=== PATIENT | male | born 1960 | race Two or more races ===

== ENCOUNTER 2017-06-03 19:15 | Inpatient (IN) | payer OTHER, MEDICAID ==
[~2017-06-03] VITALS: Ht 167.6 cm; Wt 60.0 kg
[~2017-06-03 19:15] MED LIST: ALPR0.5T PO; ARIP1TAB16 PO; ASPI-264 OR; CAR3125T PO; CILO100T PO; CLOP75TA28 PO; FURO20TA3 PO; GABA300C10 OR; HYDR-4683 PO; HYDR25TA35 PO; HYDR2INJ9 PO; HYDR50TA15 PO; INSUINJ37; IPRIH IN; ISOS10TA2 PO; LEVO50TA61 PO; LIS20T PO; LORA-654 PO; MAX35OO OP; METF-372 OR; METO25TA5 PO; NIFE30TA76 PO; NITR0.4S31; OXYC7.5T88; PANT40TA2 PO; PANTOPRAZOLE; SERT-135 PO; SERT-160 PO; SERT-274 PO; SILV1CRE82 TOP; SIMV-13 PO; SUCR1TAB38 OR; TRAZ100T2 PO; [UNRECOGNIZED DRUG - CODE] IV
[2017-06-03] MEDS ORDERED: ASPirin 81 mg TAB PO ONE (20:00)
[2017-06-03 20:57] LABS: Basophils # (auto) 0.2 uL; Basophils % (auto) 2.9 % (0.0-2.0); Eosinophils # (auto) 0.6 uL; Eosinophils % (auto) 9.8 % (0.0-7.0); Hematocrit 32.6 % (41.0-53.0); Hemoglobin 10.4 g/dL (13.5-17.5); Lymphocytes # (auto) 1.7 uL; Lymphocytes % (auto) 28.1 % (10.0-50.0); Mean Corpuscular Hemoglobin 27.5 pg (28.0-32.0); Mean Corpuscular Volume 86.1 fL (80.0-100.0); Monocytes # (auto) 0.7 uL; Monocytes % (auto) 11.8 % (0.0-12.0); Neutrophils # (auto) 2.9 uL; Neutrophils % (auto) 47.4 % (37.0-80.0); Platelet Count (auto) 350 10^3/uL (140-450); Red Blood Cells 3.78 10^6/uL (4.5-5.90); Red Cell Distribution Width 16.7 % (11.8-14.3); White Blood Cell 6.1 10^3/uL (4.4-10.8)
[2017-06-03 21:18] LABS: INR 0.93 (0.9-1.15); Partial Thromboplastin Time 29.6 sec (22.64-33.71); Prothrombin Time 10.1 sec (9.37-12.3)
[2017-06-03 21:19] LABS: Albumin 2.8 g/dL (3.4-5.0); BUN/Creatinine Ratio 12.7; Calcium 8.1 mg/dL (8.5-10.1); Potassium 3.9 mmol/L (3.5-5.1)
[2017-06-03 21:25] LABS: Bilirubin, Total 0.2 mg/dL (0.2-1.0); Total Protein 7.1 g/dL (6.4-8.2)
[2017-06-04] MEDS ORDERED: ONDANSETRON HCL 4 MG/2 ML VIAL IV ONE ×2 (00:15→05:45)
[2017-06-04] MEDS ORDERED: NALBUPHINE HCL 10 MG/1ml INJECTION IV ONE (00:15)
[2017-06-04] MEDS: SODIUM CHLORIDE 0.9% 1,000 ML IV SCH (04:10)
[2017-06-04] MEDS ORDERED: ENOXAPARIN SOD 100 MG/1 ML SYRINGE SC ONE (04:15)
[2017-06-04] MEDS ORDERED: DEXTROSE (50%) 50ML SYRG IV PRN (04:15)
[2017-06-04] MEDS ORDERED: NITROGLYCERIN 0.4 MG SL TAB SL PRN (04:15)
[2017-06-04] MEDS ORDERED: ONDANSETRON HCL 4 MG/2 ML VIAL IV PRN (04:15)
[2017-06-04] MEDS ORDERED: TEMAZEPAM 15 MG CAP PO PRN (04:15)
[2017-06-04] MEDS: HYDROcodone-ACET 5/325MG TAB PO PRN ×3 (05:25→20:39)
[2017-06-04] MEDS ORDERED: ENOXAPARIN SOD 120 MG/0.8 ML SYRINGE SC ONE (05:29)
[2017-06-04] MEDS: FUROSEMIDE 20 MG TAB PO SCH ×2 (05:35→17:46)
[2017-06-04] MEDS: ISOSORBIDE DINITRATE 10 MG TAB PO SCH ×3 (05:35→17:46)
[2017-06-04] MEDS: ACCU-CHEK COMFORT CURVE STRIP VI SCH ×3 (05:43→17:47)
[2017-06-04] MEDS: InsuLIN REG 1unit/0.01ml Soln (100units/ml) SC SCH ×3 (05:43→17:47)
[2017-06-04] MEDS ORDERED: MORPHINE SULFATE 4 MG/ML SYR/VIAL IV ONE (05:45)
[2017-06-04] MEDS: hydrALAZINE HCL 25 MG TAB PO SCH ×3 (06:02→22:00)
[2017-06-04] MEDS ORDERED: LEVOTHYROXINE SODIUM 50 MCG TAB PO SCH (07:00)
[2017-06-04 08:41] VITALS: BP 106/58
[2017-06-04] MEDS: MORPHINE SULFATE 4 MG/ML SYR/VIAL IV PRN ×2 (09:17→13:14)
[2017-06-04] MEDS ORDERED: ENOXAPARIN SOD 40 MG/0.4 ML SYRINGE SC SCH (10:00)
[2017-06-04] MEDS: SERTRALINE HCL 50 MG TAB PO SCH (12:11)
[2017-06-04] MEDS: LISINOPRIL 20 MG TAB PO SCH (12:12)
[2017-06-04] MEDS: ASPirin 81 mg TAB PO SCH (12:17)
[2017-06-04] MEDS: NIFEdipine ER 30 MG TAB PO SCH (12:17)
[2017-06-04] MEDS: CARVEDILOL 3.125 MG TAB PO SCH ×2 (12:18→22:00)
[2017-06-04] MEDS: METOPROLOL SUCCINATE XL 50 MG TAB PO SCH (12:19)
[2017-06-04] MEDS ORDERED: ASPI81TA27 PO (12:32)
[2017-06-04] MEDS ORDERED: ALPR0.5T7 PO (12:32)
[2017-06-04 16:02] LABS: Free T3 2.45 pg/mL (2.3-4.2); Free T4 (Free Thyroxine) 0.96 ng/dL (0.89-1.76)
[2017-06-04 17:00] VITALS: BP 96/58
[2017-06-04 20:00] VITALS: BP 92/54
[2017-06-04] MEDS ORDERED: ATORVASTATIN 20 MG TAB PO SCH (22:00)
[2017-06-04 22:10] VITALS: BP 92/54
[2017-06-05] MEDS: ACCU-CHEK COMFORT CURVE STRIP VI SCH ×3 (00:13→11:29)
[2017-06-05] MEDS: SODIUM CHLORIDE 0.9% 1,000 ML IV SCH (02:24)
[2017-06-05 04:57] VITALS: BP 97/67
[2017-06-05] MEDS: ISOSORBIDE DINITRATE 10 MG TAB PO SCH ×2 (06:00→11:28)
[2017-06-05] MEDS: hydrALAZINE HCL 25 MG TAB PO SCH ×2 (06:00→13:53)
[2017-06-05] MEDS: InsuLIN REG 1unit/0.01ml Soln (100units/ml) SC SCH ×3 (06:00→11:28)
[2017-06-05] MEDS: HYDROcodone-ACET 5/325MG TAB PO PRN (06:49)
[2017-06-05] MEDS: FUROSEMIDE 20 MG TAB PO SCH (06:50)
[2017-06-05] MEDS ORDERED: LEVOTHYROXINE SODIUM 25 MCG TAB PO SCH (07:00)
[2017-06-05 07:49] LABS: Basophils # (auto) 0 uL; Basophils % (auto) 0.7 % (0.0-2.0); Eosinophils # (auto) 0.7 uL; Eosinophils % (auto) 9.8 % (0.0-7.0); Hematocrit 26.9 % (41.0-53.0); Hemoglobin 8.5 g/dL (13.5-17.5); Lymphocytes # (auto) 2.5 uL; Lymphocytes % (auto) 36.1 % (10.0-50.0); Mean Corpuscular Hemoglobin 28.4 pg (28.0-32.0); Mean Corpuscular Hgb Conc. 31.6 g/dL (32.0-36.0); Mean Corpuscular Volume 89.7 fL (80.0-100.0); Monocytes # (auto) 0.7 uL; Monocytes % (auto) 10.2 % (0.0-12.0); Neutrophils % (auto) 43.2 % (37.0-80.0); Nucleated Red Blood Cells % 0.1 %; Platelet Count (auto) 276 10^3/uL (140-450); Red Cell Distribution Width 17.1 % (11.8-14.3); White Blood Cell 6.9 10^3/uL (4.4-10.8)
[2017-06-05 07:57] LABS: Albumin 2.1 g/dL (3.4-5.0); Bilirubin, Total 0.2 mg/dL (0.2-1.0); Calcium 7.1 mg/dL (8.5-10.1); Potassium 4.4 mmol/L (3.5-5.1); Total Protein 5.5 g/dL (6.4-8.2)
[2017-06-05] MEDS: MORPHINE SULFATE 4 MG/ML SYR/VIAL IV PRN ×2 (08:11→11:20)
[2017-06-05] MEDS: SERTRALINE HCL 50 MG TAB PO SCH (08:56)
[2017-06-05] MEDS: ASPirin 81 mg TAB PO SCH (08:57)
[2017-06-05] MEDS: CARVEDILOL 3.125 MG TAB PO SCH (08:58)
[2017-06-05] MEDS: METOPROLOL SUCCINATE XL 50 MG TAB PO SCH (08:59)
[2017-06-05 09:00] VITALS: BP 113/62
[2017-06-05] MEDS: NIFEdipine ER 30 MG TAB PO SCH (09:00)
[2017-06-05] MEDS: LISINOPRIL 20 MG TAB PO SCH (09:00)
[2017-06-05] MEDS ORDERED: ENOXAPARIN SOD 40 MG/0.4 ML SYRINGE SC SCH (10:00)
[2017-06-05] MEDS ORDERED: LEVO75TA6 PO (11:04)
[2017-06-05 11:48] VITALS: BP 115/65
[2017-06-05] MEDS ORDERED: NITR0.4S29 SL (11:55)
[2017-06-05 12:47] VITALS: BP 102/58
== END 2017-06-05 14:21 | disposition home or self-care (01) | DRG 280 ==
LOC: EDBD 19:15 → EDUNIT# 19:15 → ER 19:22 → TELE 19:23 → TELE-WESTW 06-04 09:13 → TELE-EAST 06-04 11:42
PROVIDERS: ADMIT Nurse Practitioner; ATTEND Internal Medicine
DX: I21.4 Non-ST elevation (NSTEMI) myocardial infarction (principal); I50.21 Acute systolic (congestive) heart failure; E44.0 Moderate protein-calorie malnutrition; E11.21 Type 2 diabetes mellitus with diabetic nephropathy; E11.40 Type 2 diabetes mellitus with diabetic neuropathy, unspecified; I13.0 Hypertensive heart and chronic kidney disease with heart failure and stage 1 through stage 4 chronic kidney disease, or unspecified chronic kidney disease; N18.3 Chronic kidney disease, stage 3 (moderate); I25.5 Ischemic cardiomyopathy; E11.22 Type 2 diabetes mellitus with diabetic chronic kidney disease; I25.2 Old myocardial infarction; E03.9 Hypothyroidism, unspecified; E78.5 Hyperlipidemia, unspecified; F17.210 Nicotine dependence, cigarettes, uncomplicated; J44.9 Chronic obstructive pulmonary disease, unspecified; F32.9 Major depressive disorder, single episode, unspecified; D64.9 Anemia, unspecified; I25.119 Atherosclerotic heart disease of native coronary artery with unspecified angina pectoris; F41.9 Anxiety disorder, unspecified; Z82.0 Family history of epilepsy and other diseases of the nervous system; Z82.49 Family history of ischemic heart disease and other diseases of the circulatory system; Z83.3 Family history of diabetes mellitus; Z95.1 Presence of aortocoronary bypass graft; Z82.3 Family history of stroke; Z95.5 Presence of coronary angioplasty implant and graft; Z90.49 Acquired absence of other specified parts of digestive tract; Z68.21 Body mass index [BMI] 21.0-21.9, adult
CPT/HCPCS: 36415; 71045; 80053; 82962; 83735; 83880; 84439; 84443; 84481; 84484; 85025; 85610; 85730; 86850; 86900; 86901; 87081; 93005; 94761; 96361; 96372; 96374; 96375; J1815; J2405

== ENCOUNTER 2017-08-06 22:01 | Inpatient (IN) | payer OTHER, MEDICAID ==
[~2017-08-06] VITALS: Ht 167.6 cm; Wt 60.8 kg
[~2017-08-06 22:01] MED LIST changes: -ALPR0.5T PO; +ALPR0.5T7 PO; -ASPI-264 OR; +ASPI81TA27 PO; -HYDR25TA35 PO; -LEVO50TA61 PO; +LEVO75TA6 PO; -MAX35OO OP; -METF-372 OR; -NIFE30TA76 PO; +NITR0.4S29 SL; -OXYC7.5T88; -PANTOPRAZOLE; -SERT-135 PO; -SERT-160 PO; -SILV1CRE82 TOP; -[UNRECOGNIZED DRUG - CODE] IV
[2017-08-06] MEDS ORDERED: NALBUPHINE HCL 10 MG/1ml INJECTION IV ONE ×2 (22:45)
[2017-08-06] MEDS ORDERED: NITROGLYCERIN 0.4 MG SL TAB SL ONE (22:45)
[2017-08-06] MEDS ORDERED: ONDANSETRON HCL 4 MG/2 ML VIAL IV ONE (22:45)
[2017-08-06] MEDS ORDERED: CLOPIDOGREL BISULFATE 75 MG TAB PO ONE ×2 (22:45)
[2017-08-06] MEDS ORDERED: NITROGLYCERIN 0.4MG/HR TOPICAL PATCH TD ONE (22:45)
[2017-08-06 22:56] LABS: Basophils # (auto) 0.1 uL; Basophils % (auto) 0.9 % (0.0-2.0); Eosinophils # (auto) 0.6 uL; Eosinophils % (auto) 8.3 % (0.0-7.0); Hematocrit 36.1 % (41.0-53.0); Hemoglobin 11.8 g/dL (13.5-17.5); Lymphocytes % (auto) 27.2 % (10.0-50.0); Mean Corpuscular Hemoglobin 29.5 pg (28.0-32.0); Mean Corpuscular Hgb Conc. 32.6 g/dL (32.0-36.0); Mean Corpuscular Volume 90.5 fL (80.0-100.0); Monocytes # (auto) 0.7 uL; Neutrophils % (auto) 54.6 % (37.0-80.0); Nucleated Red Blood Cells % 0.1 %; Platelet Count (auto) 242 10^3/uL (140-450); Red Blood Cells 3.99 10^6/uL (4.5-5.90); Red Cell Distribution Width 15.9 % (11.8-14.3); White Blood Cell 7.4 10^3/uL (4.4-10.8)
[2017-08-06 23:08] LABS: INR 0.92 (0.9-1.15); Partial Thromboplastin Time 27.8 sec (22.64-33.71)
[2017-08-06 23:09] LABS: Alanine Aminotransferase 17 U/L (16-61); Albumin 3.1 g/dL (3.4-5.0); Alkaline Phosphatase 188 U/L (45-117); Anion Gap 7 (5-15); Aspartate Aminotransferase 19 U/L (15-37); Bilirubin, Total 0.2 mg/dL (0.2-1.0); Blood Urea Nitrogen 26 mg/dL (7-18); Calcium 8.1 mg/dL (8.5-10.1); Carbon Dioxide 18 mmol/L (21-32); Chloride 116 mmol/L (98-107); GFR African American 41 mL/min; GFR Non-African American 33 mL/min; Glucose 170 mg/dL (74-106); Magnesium 2.4 mg/dL (1.6-2.6); Potassium 3.9 mmol/L (3.5-5.1); Sodium 141 mmol/L (136-145); Total Protein 6.6 g/dL (6.4-8.2)
[2017-08-06] MEDS ORDERED: NITROGLYCERIN 50MG/250ML 250 ML IV ONE ×2 (23:27→23:45)
[2017-08-06] MEDS ORDERED: LORazepam 0.5 MG TAB PO ONE (23:45)
[2017-08-07] MEDS ORDERED: TEMAZEPAM 15 MG CAP PO PRN (01:15)
[2017-08-07] MEDS ORDERED: CARVEDILOL 3.125 MG TAB PO ONE (01:15)
[2017-08-07] MEDS ORDERED: MORPHINE SULFATE 4 MG/ML SYR/VIAL IV PRN ×2 (01:15)
[2017-08-07] MEDS ORDERED: DEXTROSE (50%) 50ML SYRG IV PRN (01:15)
[2017-08-07] MEDS ORDERED: cloNIDine HCL 0.1 MG TAB PO PRN (01:15)
[2017-08-07] MEDS ORDERED: HYDROcodone-ACET 5/325MG TAB PO PRN (01:15)
[2017-08-07] MEDS ORDERED: NITROGLYCERIN 0.4 MG SL TAB SL PRN (01:15)
[2017-08-07] MEDS ORDERED: ACETAMINOPHEN 325 MG TAB PO PRN (01:15)
[2017-08-07] MEDS ORDERED: ONDANSETRON HCL 4 MG/2 ML VIAL IV PRN (01:15)
[2017-08-07] MEDS ORDERED: HYDROcodone-ACET 7.5/325MG TAB PO ONE (02:45)
[2017-08-07] MEDS ORDERED: ENOXAPARIN SOD 60 MG/0.6 ML SYRINGE SC ONE (02:45)
[2017-08-07] MEDS ORDERED: NALBUPHINE HCL 10 MG/1ml INJECTION IV PRN (05:00)
[2017-08-07] MEDS: ISOSORBIDE MONONITRATE 20 MG TAB PO SCH ×3 (06:00→22:34)
[2017-08-07] MEDS: FUROSEMIDE 20 MG TAB PO SCH ×2 (06:00→18:32)
[2017-08-07] MEDS: hydrALAZINE HCL 25 MG TAB PO SCH ×3 (06:00→22:33)
[2017-08-07] MEDS: GABAPENTIN 300 MG CAP PO SCH ×3 (06:00→22:34)
[2017-08-07] MEDS: ACCU-CHEK COMFORT CURVE STRIP VI SCH ×4 (06:30→23:53)
[2017-08-07] MEDS: InsuLIN REG 1unit/0.01ml Soln (100units/ml) SC SCH ×4 (06:30→23:52)
[2017-08-07] MEDS: CARVEDILOL 3.125 MG TAB PO SCH ×2 (09:37→22:33)
[2017-08-07] MEDS: LEVOTHYROXINE SODIUM 25 MCG TAB PO SCH (09:37)
[2017-08-07] MEDS: PANTOPRAZOLE 40 MG TAB PO SCH (09:38)
[2017-08-07] MEDS: CILOSTAZOL 100 MG TAB PO SCH ×2 (09:38→22:34)
[2017-08-07] MEDS: ENOXAPARIN SOD 30 MG/0.3 ML SYRINGE SC SCH (09:38)
[2017-08-07] MEDS: CLOPIDOGREL BISULFATE 75 MG TAB PO SCH (09:38)
[2017-08-07] MEDS: LISINOPRIL 20 MG TAB PO SCH (09:38)
[2017-08-07] MEDS ORDERED: NITROGLYCERIN 0.4 MG SL TAB SL ONE (10:00)
[2017-08-07] MEDS ORDERED: MORPHINE SULFATE 8mg/ml INJ SDV IV PRN (11:45)
[2017-08-07 13:00] VITALS: BP 137/77
[2017-08-07] MEDS: MORPHINE SULFATE 8mg/ml INJ SDV IV PRN ×2 (15:29→20:00)
[2017-08-07 17:00] VITALS: BP 145/69
[2017-08-07] MEDS ORDERED: SERT-274 PO (18:41)
[2017-08-07] MEDS ORDERED: LEVO50TA7 PO (18:41)
[2017-08-07] MEDS ORDERED: SUCR1TAB PO (18:41)
[2017-08-07] MEDS ORDERED: PSEU30TA3 PO (18:41)
[2017-08-07] MEDS ORDERED: HYDR25TA35 PO (18:41)
[2017-08-07] MEDS ORDERED: CEFU500T43 PO (18:41)
[2017-08-07] MEDS ORDERED: BUPR100T14 PO (18:41)
[2017-08-07 20:00] VITALS: BP 125/67
[2017-08-07] MEDS: ATORVASTATIN 20 MG TAB PO SCH (22:34)
[2017-08-07] MEDS: OXYCODONE W/ ACETAMINOPHEN 5/325MG TABLET PO PRN (22:35)
[2017-08-08] VITALS (7 sets, daily range): BP systolic 106–132; BP diastolic 37–73
[2017-08-08] MEDS: MORPHINE SULFATE 8mg/ml INJ SDV IV PRN ×5 (00:06→20:49)
[2017-08-08 05:51] LABS: Basophils # (auto) 0.1 uL; Eosinophils # (auto) 0.7 uL; Hematocrit 37.1 % (41.0-53.0); Hemoglobin 12.4 g/dL (13.5-17.5); Lymphocytes # (auto) 2.1 uL; Lymphocytes % (auto) 30.8 % (10.0-50.0); Mean Corpuscular Hemoglobin 30.2 pg (28.0-32.0); Mean Corpuscular Hgb Conc. 33.6 g/dL (32.0-36.0); Mean Corpuscular Volume 89.9 fL (80.0-100.0); Monocytes # (auto) 0.5 uL; Monocytes % (auto) 7.5 % (0.0-12.0); Neutrophils # (auto) 3.4 uL; Neutrophils % (auto) 49.7 % (37.0-80.0); Nucleated Red Blood Cells % 0.1 %; Platelet Count (auto) 236 10^3/uL (140-450); Red Blood Cells 4.12 10^6/uL (4.5-5.90); Red Cell Distribution Width 15.8 % (11.8-14.3); White Blood Cell 6.7 10^3/uL (4.4-10.8)
[2017-08-08] MEDS: InsuLIN REG 1unit/0.01ml Soln (100units/ml) SC SCH ×3 (06:00→18:00)
[2017-08-08 06:09] LABS: Potassium 4.1 mmol/L (3.5-5.1)
[2017-08-08 06:18] LABS: Albumin 2.9 g/dL (3.4-5.0); BUN/Creatinine Ratio 12.7; Calcium 8.3 mg/dL (8.5-10.1); Magnesium 2.2 mg/dL (1.6-2.6); Total Protein 6.2 g/dL (6.4-8.2)
[2017-08-08 06:19] LABS: Bilirubin, Total 0.4 mg/dL (0.2-1.0)
[2017-08-08] MEDS: ACCU-CHEK COMFORT CURVE STRIP VI SCH ×3 (06:32→18:00)
[2017-08-08] MEDS: hydrALAZINE HCL 25 MG TAB PO SCH ×3 (06:50→22:09)
[2017-08-08] MEDS: ISOSORBIDE MONONITRATE 20 MG TAB PO SCH ×3 (06:50→22:10)
[2017-08-08] MEDS: GABAPENTIN 300 MG CAP PO SCH ×3 (06:52→22:11)
[2017-08-08] MEDS: FUROSEMIDE 20 MG TAB PO SCH (06:52)
[2017-08-08] MEDS: LEVOTHYROXINE SODIUM 25 MCG TAB PO SCH (06:52)
[2017-08-08] MEDS: OXYCODONE W/ ACETAMINOPHEN 5/325MG TABLET PO PRN (08:53)
[2017-08-08] MEDS: CLOPIDOGREL BISULFATE 75 MG TAB PO SCH (10:37)
[2017-08-08] MEDS: CARVEDILOL 3.125 MG TAB PO SCH ×2 (10:37→22:10)
[2017-08-08] MEDS: PANTOPRAZOLE 40 MG TAB PO SCH (10:38)
[2017-08-08] MEDS: LISINOPRIL 20 MG TAB PO SCH (10:38)
[2017-08-08] MEDS: CILOSTAZOL 100 MG TAB PO SCH ×2 (10:38→22:11)
[2017-08-08] MEDS: ENOXAPARIN SOD 30 MG/0.3 ML SYRINGE SC SCH (10:39)
[2017-08-08] MEDS: ALPRAZolam 0.5 MG TAB PO PRN (14:28)
[2017-08-08] MEDS: ATORVASTATIN 20 MG TAB PO SCH (22:10)
[2017-08-09] VITALS (8 sets, daily range): BP systolic 92–131; BP diastolic 49–74
[2017-08-09] MEDS: ACCU-CHEK COMFORT CURVE STRIP VI SCH ×4 (00:10→16:23)
[2017-08-09] MEDS: InsuLIN REG 1unit/0.01ml Soln (100units/ml) SC SCH ×4 (00:10→16:24)
[2017-08-09] MEDS: MORPHINE SULFATE 8mg/ml INJ SDV IV PRN ×5 (01:25→22:10)
[2017-08-09] MEDS: ALPRAZolam 0.5 MG TAB PO PRN (04:05)
[2017-08-09] MEDS: GABAPENTIN 300 MG CAP PO SCH ×3 (05:57→22:02)
[2017-08-09] MEDS: ISOSORBIDE MONONITRATE 20 MG TAB PO SCH ×3 (05:57→22:01)
[2017-08-09] MEDS: hydrALAZINE HCL 25 MG TAB PO SCH ×3 (05:57→22:00)
[2017-08-09] MEDS: LEVOTHYROXINE SODIUM 25 MCG TAB PO SCH (06:42)
[2017-08-09] MEDS: CILOSTAZOL 100 MG TAB PO SCH ×3 (09:48→22:02)
[2017-08-09] MEDS: CARVEDILOL 3.125 MG TAB PO SCH ×2 (09:49→22:01)
[2017-08-09] MEDS: CLOPIDOGREL BISULFATE 75 MG TAB PO SCH (09:50)
[2017-08-09] MEDS: PANTOPRAZOLE 40 MG TAB PO SCH (09:50)
[2017-08-09] MEDS: ENOXAPARIN SOD 30 MG/0.3 ML SYRINGE SC SCH (09:51)
[2017-08-09] MEDS: LISINOPRIL 20 MG TAB PO SCH (09:51)
[2017-08-09 14:04] LABS: Basophils # (auto) 0.1 uL; Basophils % (auto) 1.5 % (0.0-2.0); Eosinophils # (auto) 0.5 uL; Hematocrit 36.6 % (41.0-53.0); Hemoglobin 11.8 g/dL (13.5-17.5); Lymphocytes # (auto) 2.1 uL; Lymphocytes % (auto) 29.9 % (10.0-50.0); Mean Corpuscular Hgb Conc. 32.2 g/dL (32.0-36.0); Mean Corpuscular Volume 90.1 fL (80.0-100.0); Monocytes # (auto) 0.7 uL; Monocytes % (auto) 10.4 % (0.0-12.0); Neutrophils # (auto) 3.6 uL; Neutrophils % (auto) 51.2 % (37.0-80.0); Nucleated Red Blood Cells % 0.1 %; Platelet Count (auto) 226 10^3/uL (140-450); Red Blood Cells 4.06 10^6/uL (4.5-5.90); Red Cell Distribution Width 15.5 % (11.8-14.3); White Blood Cell 7.1 10^3/uL (4.4-10.8)
[2017-08-09 14:35] LABS: BUN/Creatinine Ratio 10.3; Calcium 8.2 mg/dL (8.5-10.1); Magnesium 2.3 mg/dL (1.6-2.6); Potassium 4.5 mmol/L (3.5-5.1)
[2017-08-09] MEDS: SODIUM BICARBONATE 50ML VIAL 100 ML in D5W 5% 1,000 ML IV SCH (16:15)
[2017-08-09] MEDS: ATORVASTATIN 20 MG TAB PO SCH (22:01)
[2017-08-10] VITALS (7 sets, daily range): BP systolic 110–130; BP diastolic 58–91
[2017-08-10] MEDS: ACCU-CHEK COMFORT CURVE STRIP VI SCH ×4 (00:17→16:46)
[2017-08-10] MEDS: SODIUM BICARBONATE 50ML VIAL 100 ML in D5W 5% 1,000 ML IV SCH ×2 (02:33→14:11)
[2017-08-10] MEDS: MORPHINE SULFATE 8mg/ml INJ SDV IV PRN ×4 (03:19→20:15)
[2017-08-10] MEDS: ALPRAZolam 0.5 MG TAB PO PRN ×2 (04:02→17:15)
[2017-08-10] MEDS: InsuLIN REG 1unit/0.01ml Soln (100units/ml) SC SCH ×4 (05:46→16:47)
[2017-08-10] MEDS: ISOSORBIDE MONONITRATE 20 MG TAB PO SCH ×3 (05:58→21:45)
[2017-08-10] MEDS: GABAPENTIN 300 MG CAP PO SCH ×3 (05:58→21:45)
[2017-08-10] MEDS: hydrALAZINE HCL 25 MG TAB PO SCH ×3 (05:58→21:44)
[2017-08-10 06:16] LABS: BUN/Creatinine Ratio 11.4; Calcium 8.3 mg/dL (8.5-10.1); Magnesium 2.3 mg/dL (1.6-2.6); Potassium 4.4 mmol/L (3.5-5.1)
[2017-08-10 06:17] LABS: Basophils # (auto) 0.1 uL; Basophils % (auto) 1.3 % (0.0-2.0); Eosinophils # (auto) 0.5 uL; Eosinophils % (auto) 7.7 % (0.0-7.0); Hematocrit 36.1 % (41.0-53.0); Hemoglobin 12.1 g/dL (13.5-17.5); Lymphocytes # (auto) 1.7 uL; Lymphocytes % (auto) 27.6 % (10.0-50.0); Mean Corpuscular Hgb Conc. 33.4 g/dL (32.0-36.0); Mean Corpuscular Volume 89.7 fL (80.0-100.0); Monocytes # (auto) 0.7 uL; Neutrophils # (auto) 3.2 uL; Neutrophils % (auto) 51.4 % (37.0-80.0); Nucleated Red Blood Cells % 0.1 %; Platelet Count (auto) 209 10^3/uL (140-450); Red Blood Cells 4.02 10^6/uL (4.5-5.90); Red Cell Distribution Width 15.4 % (11.8-14.3); White Blood Cell 6.2 10^3/uL (4.4-10.8)
[2017-08-10] MEDS: LEVOTHYROXINE SODIUM 25 MCG TAB PO SCH (06:50)
[2017-08-10] MEDS: CILOSTAZOL 100 MG TAB PO SCH ×2 (08:32→21:46)
[2017-08-10] MEDS: CARVEDILOL 3.125 MG TAB PO SCH ×2 (08:33→21:44)
[2017-08-10] MEDS: CLOPIDOGREL BISULFATE 75 MG TAB PO SCH (08:33)
[2017-08-10] MEDS: PANTOPRAZOLE 40 MG TAB PO SCH (08:33)
[2017-08-10] MEDS: LISINOPRIL 20 MG TAB PO SCH (09:47)
[2017-08-10] MEDS: ENOXAPARIN SOD 30 MG/0.3 ML SYRINGE SC SCH (11:21)
[2017-08-10 18:41] LABS: Urine Bacteria NONE SEEN /hpf (None Seen); Urine Blood Negative /uL (Negative); Urine Specific Gravity 1.008 (1.001-1.035); Urine WBC <1 /hpf (0 - 3)
[2017-08-10 18:57] LABS: Protein, Urine 90.6 mg/dL (0.0-11.9)
[2017-08-10] MEDS: ATORVASTATIN 20 MG TAB PO SCH (21:45)
[2017-08-11] MEDS: ACCU-CHEK COMFORT CURVE STRIP VI SCH ×2 (00:24→06:39)
[2017-08-11] MEDS: SODIUM BICARBONATE 50ML VIAL 100 ML in D5W 5% 1,000 ML IV SCH (00:24)
[2017-08-11] MEDS: MORPHINE SULFATE 8mg/ml INJ SDV IV PRN ×2 (00:46→04:47)
[2017-08-11 04:45] VITALS: BP 126/60
[2017-08-11] MEDS: InsuLIN REG 1unit/0.01ml Soln (100units/ml) SC SCH ×2 (06:00)
[2017-08-11 06:18] LABS: Basophils # (auto) 0.1 uL; Basophils % (auto) 1.1 % (0.0-2.0); Eosinophils # (auto) 0.4 uL; Eosinophils % (auto) 6.8 % (0.0-7.0); Hematocrit 36.9 % (41.0-53.0); Hemoglobin 12.4 g/dL (13.5-17.5); Lymphocytes # (auto) 1.5 uL; Lymphocytes % (auto) 28.3 % (10.0-50.0); Mean Corpuscular Hemoglobin 29.9 pg (28.0-32.0); Mean Corpuscular Hgb Conc. 33.5 g/dL (32.0-36.0); Mean Corpuscular Volume 89.4 fL (80.0-100.0); Monocytes # (auto) 0.7 uL; Monocytes % (auto) 13.3 % (0.0-12.0); Neutrophils # (auto) 2.7 uL; Neutrophils % (auto) 50.5 % (37.0-80.0); Nucleated Red Blood Cells % 0.1 %; Platelet Count (auto) 209 10^3/uL (140-450); Red Blood Cells 4.13 10^6/uL (4.5-5.90); Red Cell Distribution Width 15.2 % (11.8-14.3); White Blood Cell 5.4 10^3/uL (4.4-10.8)
[2017-08-11] MEDS: GABAPENTIN 300 MG CAP PO SCH (06:25)
[2017-08-11] MEDS: hydrALAZINE HCL 25 MG TAB PO SCH (06:25)
[2017-08-11] MEDS: ISOSORBIDE MONONITRATE 20 MG TAB PO SCH (06:25)
[2017-08-11 06:33] LABS: BUN/Creatinine Ratio 12.3; Calcium 8.7 mg/dL (8.5-10.1); Magnesium 2.5 mg/dL (1.6-2.6); Potassium 3.9 mmol/L (3.5-5.1)
[2017-08-11] MEDS: LEVOTHYROXINE SODIUM 25 MCG TAB PO SCH (06:39)
[2017-08-11 08:28] VITALS: BP 126/72
[2017-08-11 08:52] VITALS: BP 126/72
== END 2017-08-11 09:35 | disposition home or self-care (01) | DRG 291 ==
LOC: EDBD 22:01 → ER 22:03 → TELE 22:04 → TELE-WESTW 08-07 13:10
PROVIDERS: ADMIT Nurse Practitioner; ATTEND Internal Medicine
DX: I13.0 Hypertensive heart and chronic kidney disease with heart failure and stage 1 through stage 4 chronic kidney disease, or unspecified chronic kidney disease (principal); N17.0 Acute kidney failure with tubular necrosis; E87.2 Acidosis; E44.1 Mild protein-calorie malnutrition; N18.4 Chronic kidney disease, stage 4 (severe); R07.89 Other chest pain; I25.10 Atherosclerotic heart disease of native coronary artery without angina pectoris; F32.9 Major depressive disorder, single episode, unspecified; I25.2 Old myocardial infarction; D64.9 Anemia, unspecified; E03.9 Hypothyroidism, unspecified; E11.21 Type 2 diabetes mellitus with diabetic nephropathy; E11.22 Type 2 diabetes mellitus with diabetic chronic kidney disease; E78.5 Hyperlipidemia, unspecified; F17.210 Nicotine dependence, cigarettes, uncomplicated; F41.9 Anxiety disorder, unspecified; I25.5 Ischemic cardiomyopathy; I50.9 Heart failure, unspecified; J44.9 Chronic obstructive pulmonary disease, unspecified; Z79.899 Other long term (current) drug therapy; Z82.0 Family history of epilepsy and other diseases of the nervous system; Z82.3 Family history of stroke; Z82.49 Family history of ischemic heart disease and other diseases of the circulatory system; Z83.3 Family history of diabetes mellitus; Z95.1 Presence of aortocoronary bypass graft; Z95.5 Presence of coronary angioplasty implant and graft
CPT/HCPCS: 36415; 71045; 78582; 80048; 80053; 81001; 82306; 82570; 82962; 83735; 83880; 84100; 84156; 84443; 84484; 85025; 85610; 85730; 93005; 96374; 96375; 99291; J1815; J2270; J2405

== ENCOUNTER 2017-09-22 20:55 | Emergency (ER) | payer MEDICAID, MEDICARE, OTHER ==
[~2017-09-22] VITALS: Ht 167.6 cm; Wt 59.0 kg
[~2017-09-22 20:55] MED LIST changes: +BUPR100T14 PO; +HYDR25TA35 PO; -HYDR50TA15 PO; +LEVO50TA7 PO; +SUCR1TAB PO; -SUCR1TAB38 OR
[2017-09-22 21:56] LABS: Basophils # (auto) 0.1 uL; Basophils % (auto) 1.5 % (0.0-2.0); Eosinophils # (auto) 0.3 uL; Eosinophils % (auto) 5.3 % (0.0-7.0); Hematocrit 42.2 % (41.0-53.0); Hemoglobin 13.9 g/dL (13.5-17.5); Lymphocytes # (auto) 2.6 uL; Lymphocytes % (auto) 44.7 % (10.0-50.0); Mean Corpuscular Hemoglobin 28.4 pg (28.0-32.0); Mean Corpuscular Hgb Conc. 32.9 g/dL (32.0-36.0); Mean Corpuscular Volume 86.3 fL (80.0-100.0); Monocytes # (auto) 0.4 uL; Monocytes % (auto) 7.5 % (0.0-12.0); Neutrophils # (auto) 2.4 uL; Platelet Count (auto) 225 10^3/uL (140-450); Red Blood Cells 4.89 10^6/uL (4.5-5.90); Red Cell Distribution Width 14.7 % (11.8-14.3); White Blood Cell 5.9 10^3/uL (4.4-10.8)
[2017-09-22 22:17] LABS: Alanine Aminotransferase 29 U/L (16-61); Albumin 3.7 g/dL (3.4-5.0); Alkaline Phosphatase 194 U/L (45-117); Anion Gap 10 (5-15); Aspartate Aminotransferase 32 U/L (15-37); BUN/Creatinine Ratio 12.4; Bilirubin, Total 0.1 mg/dL (0.2-1.0); Blood Urea Nitrogen 27 mg/dL (7-18); Calcium 8.5 mg/dL (8.5-10.1); Carbon Dioxide 18 mmol/L (21-32); Chloride 114 mmol/L (98-107); GFR African American 41 mL/min; GFR Non-African American 33 mL/min; Glucose 152 mg/dL (74-106); Magnesium 2.5 mg/dL (1.6-2.6); Potassium 3.8 mmol/L (3.5-5.1); Sodium 142 mmol/L (136-145); Total Protein 7.5 g/dL (6.4-8.2)
[2017-09-22 22:29] LABS: INR 0.91 (0.9-1.15); Partial Thromboplastin Time 29.5 sec (23.78-33.04); Prothrombin Time 9.8 sec (9.27-12.13)
[2017-09-23 01:13] LABS: Urine Bacteria NONE SEEN /hpf (None Seen); Urine Blood 1+ /uL (Negative); Urine Budding Yeast OCCASIONAL /hpf (None Seen); Urine Hyaline Cast FEW /lpf (0 - 2); Urine Mucus FEW (None Seen); Urine Specific Gravity 1.029 (1.001-1.035); Urine WBC 1 /hpf (0 - 3)
[2017-09-23] MEDS ORDERED: LORazepam 2MG/ML-1ML VIAL IV ONE (01:15)
[2017-09-23 01:28] LABS: Amphetamine Screen, Urine NEGATIVE (NEGATIVE); Barbiturate Scree,Urine NEGATIVE (NEGATIVE); Benzodiazephine Screen, Urine NEGATIVE (NEGATIVE); Cannabinoid Screen, Urine NEGATIVE (NEGATIVE); Cocaine Screen, Urine NEGATIVE (NEGATIVE); Opiate Scree,Urine NEGATIVE (NEGATIVE); Phencyclidine Screen, Urine NEGATIVE (NEGATIVE)
[2017-09-23] MEDS ORDERED: LORazepam 2MG/ML-1ML VIAL IM ONE (01:30)
[2017-09-23 03:58] VITALS: BP 118/78
== END 2017-09-23 04:02 | disposition home or self-care (01) ==
LOC: EDBD 20:55 → ER 20:55
DX: F41.9 Anxiety disorder, unspecified (principal); I13.0 Hypertensive heart and chronic kidney disease with heart failure and stage 1 through stage 4 chronic kidney disease, or unspecified chronic kidney disease; E11.22 Type 2 diabetes mellitus with diabetic chronic kidney disease; N18.9 Chronic kidney disease, unspecified; I50.9 Heart failure, unspecified; I25.810 Atherosclerosis of coronary artery bypass graft(s) without angina pectoris; F17.210 Nicotine dependence, cigarettes, uncomplicated; J44.9 Chronic obstructive pulmonary disease, unspecified; E78.5 Hyperlipidemia, unspecified; I25.2 Old myocardial infarction; Z95.1 Presence of aortocoronary bypass graft; Z90.49 Acquired absence of other specified parts of digestive tract
CPT/HCPCS: 36415; 71045; 80053; 80307; 81001; 83735; 83880; 84484; 85025; 85610; 85730; 93005; 96372; 99285; J2060

== ENCOUNTER 2017-10-09 13:57 | Inpatient (IN) | payer OTHER, MEDICAID ==
[~2017-10-09] VITALS: Ht 167.6 cm; Wt 59.3 kg
[2017-10-09 15:06] LABS: Basophils # (auto) 0.2 uL; Basophils % (auto) 2.3 % (0.0-2.0); Eosinophils # (auto) 0.2 uL; Hematocrit 41.2 % (41.0-53.0); Hemoglobin 13.5 g/dL (13.5-17.5); Lymphocytes % (auto) 29.5 % (10.0-50.0); Mean Corpuscular Hemoglobin 28.5 pg (28.0-32.0); Mean Corpuscular Hgb Conc. 32.7 g/dL (32.0-36.0); Mean Corpuscular Volume 87.2 fL (80.0-100.0); Monocytes # (auto) 0.5 uL; Monocytes % (auto) 7.9 % (0.0-12.0); Neutrophils # (auto) 3.8 uL; Neutrophils % (auto) 57.3 % (37.0-80.0); Nucleated Red Blood Cells % 0.1 %; Platelet Count (auto) 220 10^3/uL (140-450); Red Blood Cells 4.73 10^6/uL (4.5-5.90); Red Cell Distribution Width 15.1 % (11.8-14.3); White Blood Cell 6.7 10^3/uL (4.4-10.8)
[2017-10-09 15:28] LABS: Alanine Aminotransferase 27 U/L (16-61); Albumin 3.4 g/dL (3.4-5.0); Alkaline Phosphatase 164 U/L (45-117); Anion Gap 7 (5-15); Aspartate Aminotransferase 24 U/L (15-37); Bilirubin, Total 0.5 mg/dL (0.2-1.0); Blood Urea Nitrogen 26 mg/dL (7-18); Calcium 8.1 mg/dL (8.5-10.1); Carbon Dioxide 21 mmol/L (21-32); Chloride 113 mmol/L (98-107); GFR African American 45 mL/min; GFR Non-African American 37 mL/min; Glucose 179 mg/dL (74-106); Potassium 3.7 mmol/L (3.5-5.1); Sodium 141 mmol/L (136-145); Total Protein 6.8 g/dL (6.4-8.2)
[2017-10-09] MEDS ORDERED: ASPirin 81 mg TAB PO ONE (17:45)
[2017-10-09] MEDS ORDERED: HYDROcodone-ACET 5/325MG TAB PO PRN (18:45)
[2017-10-09] MEDS ORDERED: NITROGLYCERIN 0.4 MG SL TAB SL PRN (18:45)
[2017-10-09] MEDS ORDERED: MORPHINE SULFATE 8mg/ml INJ SDV IV PRN (18:45)
[2017-10-09] MEDS ORDERED: HYDROmorphone HCL 2 MG TAB PO PRN (18:45)
[2017-10-09] MEDS ORDERED: TEMAZEPAM 15 MG CAP PO PRN (18:45)
[2017-10-09] MEDS ORDERED: DEXTROSE (50%) 50ML SYRG IV PRN (18:45)
[2017-10-09] MEDS ORDERED: ACETAMINOPHEN 500 MG TAB PO PRN (18:45)
[2017-10-09 19:08] LABS: INR 0.95 (0.9-1.15); Partial Thromboplastin Time 28.7 sec (23.78-33.04); Prothrombin Time 10.2 sec (9.27-12.13)
[2017-10-09] MEDS: MORPHINE SULF(PF) 0.5MG/ML 10ML VIAL IV PRN (19:48)
[2017-10-09] MEDS: PROMETHAZINE HCL 25 MG/ML 1ML IV PRN (19:49)
[2017-10-09] MEDS: LORazepam 0.5 MG TAB PO PRN (20:21)
[2017-10-09] MEDS: ARIPIPRAZOLE 2 MG PO SCH (22:00)
[2017-10-09] MEDS: PANTOPRAZOLE 40 MG TAB PO SCH (22:07)
[2017-10-09] MEDS: hydrALAZINE HCL 25 MG TAB PO SCH (22:07)
[2017-10-09] MEDS: SODIUM CHLOR 0.9% PF (SALINE LOCK) 10ML VIAL/SYR IV SCH (22:07)
[2017-10-09] MEDS: CARVEDILOL 3.125 MG TAB PO SCH (22:11)
[2017-10-09] MEDS: SUCRALFATE 1 GM TAB PO SCH (22:11)
[2017-10-09] MEDS: ISOSORBIDE DINITRATE 10 MG TAB PO SCH (22:12)
[2017-10-09] MEDS: ATORVASTATIN 20 MG TAB PO SCH (22:13)
[2017-10-09] MEDS: buPROPion HCL 100 MG TAB PO SCH (22:14)
[2017-10-09] MEDS: InsuLIN REG 1unit/0.01ml Soln (100units/ml) SC SCH (22:22)
[2017-10-09] MEDS: ACCU-CHEK COMFORT CURVE STRIP VI SCH (22:23)
[2017-10-09] MEDS: GABAPENTIN 300 MG CAP PO SCH (22:24)
[2017-10-09] MEDS: traZODone HCL 50 MG TAB PO SCH (22:51)
[2017-10-09] MEDS: CILOSTAZOL 100 MG TAB PO SCH (22:56)
[2017-10-10 00:30] VITALS: BP 125/74
[2017-10-10 05:00] VITALS: BP 105/67
[2017-10-10] MEDS: SODIUM CHLOR 0.9% PF (SALINE LOCK) 10ML VIAL/SYR IV SCH ×3 (05:51→22:26)
[2017-10-10] MEDS: SUCRALFATE 1 GM TAB PO SCH ×3 (05:51→22:25)
[2017-10-10] MEDS: GABAPENTIN 300 MG CAP PO SCH ×3 (05:53→22:26)
[2017-10-10] MEDS: ISOSORBIDE DINITRATE 10 MG TAB PO SCH ×3 (05:53→22:00)
[2017-10-10] MEDS: hydrALAZINE HCL 25 MG TAB PO SCH ×3 (05:54→22:00)
[2017-10-10] MEDS: ACCU-CHEK COMFORT CURVE STRIP VI SCH ×4 (06:00→22:00)
[2017-10-10] MEDS: InsuLIN REG 1unit/0.01ml Soln (100units/ml) SC SCH ×4 (06:00→22:00)
[2017-10-10] MEDS ORDERED: MORPHINE SULF INJ 2 MG/ML SYRINGE 1ML ONE ×2 (06:10→10:32)
[2017-10-10] MEDS ORDERED: LEVOTHYROXINE SODIUM 25 MCG TAB PO SCH (07:00)
[2017-10-10] MEDS ORDERED: LEVOTHYROXINE SODIUM 50 MCG TAB PO SCH (07:00)
[2017-10-10 08:05] VITALS: BP 101/57
[2017-10-10 08:14] LABS: Albumin 2.8 g/dL (3.4-5.0); BUN/Creatinine Ratio 13.4; Bilirubin, Total 0.5 mg/dL (0.2-1.0); Potassium 3.4 mmol/L (3.5-5.1); Total Protein 5.5 g/dL (6.4-8.2)
[2017-10-10] MEDS: LISINOPRIL 20 MG TAB PO SCH (10:00)
[2017-10-10] MEDS ORDERED: CLOPIDOGREL BISULFATE 75 MG TAB PO SCH (10:00)
[2017-10-10] MEDS: ENOXAPARIN SOD 40 MG/0.4 ML SYRINGE SC SCH ×2 (10:00→11:02)
[2017-10-10] MEDS: CARVEDILOL 3.125 MG TAB PO SCH ×2 (10:00→22:00)
[2017-10-10] MEDS: SERTRALINE HCL 50 MG TAB PO SCH (11:01)
[2017-10-10] MEDS: buPROPion HCL 100 MG TAB PO SCH ×2 (11:02→22:26)
[2017-10-10] MEDS: NITROGLYCERIN 0.2MG/HR TOPICAL PATCH TD SCH (11:02)
[2017-10-10] MEDS: PANTOPRAZOLE 40 MG TAB PO SCH (11:03)
[2017-10-10] MEDS: ASPirin-EC 81 mg tab PO SCH (11:03)
[2017-10-10] MEDS: HYDROmorphone HCL 2 MG TAB PO PRN ×2 (11:03→17:17)
[2017-10-10] MEDS: CILOSTAZOL 100 MG TAB PO SCH ×2 (11:03→22:26)
[2017-10-10] MEDS: FUROSEMIDE 20 MG TAB PO SCH (11:04)
[2017-10-10] MEDS ORDERED: IODIXANOL 320MG/ML 100ML BTL IV ONE ×3 (11:40→13:25)
[2017-10-10] MEDS ORDERED: LIDOCAINE 2%HCL (LOCAL ANESTH.) INJ 20ML MDV ONE (11:40)
[2017-10-10 11:48] VITALS: BP 118/61
[2017-10-10] MEDS ORDERED: ANGIOMAX 250 MG VIAL IV ONE (12:23)
[2017-10-10] MEDS ORDERED: MIDAZOLAM HCL 1MG/1ML-2 ML VIAL ONE ×2 (12:23→13:27)
[2017-10-10] MEDS ORDERED: fentaNYL CITRATE 100 MCG/2 ML VL ONE ×2 (12:23→13:27)
[2017-10-10] MEDS ORDERED: EPTIFIBATIDE INJ (2MG/ML) 10ML VIAL IV ONE (12:24)
[2017-10-10] MEDS ORDERED: SODIUM CHL 0.9% 50 ML ONE (12:24)
[2017-10-10] MEDS ORDERED: LIDOCAINE HCL 100 MG/5ML (2%) SYRG INJ IV ONE (13:25)
[2017-10-10] MEDS ORDERED: PRASUGREL HCL 10 MG TAB ONE (13:38)
[2017-10-10] MEDS ORDERED: SODIUM BICARBONATE 8.4% INJ 50ML SYRINGE ONE (14:03)
[2017-10-10 16:15] VITALS: BP 95/54
[2017-10-10] MEDS: traZODone HCL 50 MG TAB PO SCH (17:17)
[2017-10-10] MEDS: LORazepam 0.5 MG TAB PO PRN (17:23)
[2017-10-10 20:48] LABS: Alcohol, Urine < 3.0 mg/dL (0-5); Amphetamine Screen, Urine NEGATIVE (NEGATIVE); Barbiturate Scree,Urine NEGATIVE (NEGATIVE); Benzodiazephine Screen, Urine POSITIVE (NEGATIVE); Cannabinoid Screen, Urine NEGATIVE (NEGATIVE); Cocaine Screen, Urine NEGATIVE (NEGATIVE); Opiate Scree,Urine NEGATIVE (NEGATIVE); Phencyclidine Screen, Urine NEGATIVE (NEGATIVE)
[2017-10-10] MEDS: ALPRAZolam 0.5 MG TAB PO PRN (21:20)
[2017-10-10] MEDS: MORPHINE SULF(PF) 0.5MG/ML 10ML VIAL IV PRN (21:40)
[2017-10-10 22:00] VITALS: BP 113/78
[2017-10-10] MEDS: ARIPIPRAZOLE 2 MG PO SCH (22:00)
[2017-10-10] MEDS: ATORVASTATIN 20 MG TAB PO SCH (22:26)
[2017-10-11] MEDS ORDERED: MORPHINE SULFATE 8mg/ml INJ SDV IM ONE (01:30)
[2017-10-11] MEDS ORDERED: ONDANSETRON HCL 4 MG/2 ML VIAL IM ONE (01:30)
[2017-10-11] MEDS: MORPHINE SULF(PF) 0.5MG/ML 10ML VIAL IV PRN ×4 (01:57→21:47)
[2017-10-11 05:00] VITALS: BP 119/74
[2017-10-11] MEDS: SODIUM CHLOR 0.9% PF (SALINE LOCK) 10ML VIAL/SYR IV SCH ×3 (06:25→21:50)
[2017-10-11] MEDS: ISOSORBIDE DINITRATE 10 MG TAB PO SCH ×3 (06:26→21:41)
[2017-10-11] MEDS: SUCRALFATE 1 GM TAB PO SCH ×3 (06:26→21:45)
[2017-10-11] MEDS: hydrALAZINE HCL 25 MG TAB PO SCH ×3 (06:26→21:46)
[2017-10-11] MEDS: GABAPENTIN 300 MG CAP PO SCH ×3 (06:27→21:42)
[2017-10-11] MEDS: InsuLIN REG 1unit/0.01ml Soln (100units/ml) SC SCH ×4 (06:46→21:50)
[2017-10-11] MEDS: ACCU-CHEK COMFORT CURVE STRIP VI SCH ×4 (06:46→21:50)
[2017-10-11 08:00] VITALS: BP_SYST 101; BP_SYST 119; BP_DIAS 60; BP_DIAS 74
[2017-10-11] MEDS: ASPirin-EC 81 mg tab PO SCH (09:36)
[2017-10-11] MEDS: buPROPion HCL 100 MG TAB PO SCH ×2 (09:36→21:42)
[2017-10-11] MEDS: NITROGLYCERIN 0.2MG/HR TOPICAL PATCH TD SCH (09:36)
[2017-10-11] MEDS: SERTRALINE HCL 50 MG TAB PO SCH (09:37)
[2017-10-11] MEDS: LISINOPRIL 20 MG TAB PO SCH (09:37)
[2017-10-11] MEDS: PANTOPRAZOLE 40 MG TAB PO SCH (09:37)
[2017-10-11] MEDS: CARVEDILOL 3.125 MG TAB PO SCH ×2 (09:37→21:45)
[2017-10-11] MEDS: FUROSEMIDE 20 MG TAB PO SCH (09:39)
[2017-10-11] MEDS: PRASUGREL HCL 10 MG TAB PO SCH (09:43)
[2017-10-11] MEDS: CILOSTAZOL 100 MG TAB PO SCH ×2 (09:43→21:44)
[2017-10-11] MEDS ORDERED: PRASUGREL HCL 10 MG TAB PO SCH (10:00)
[2017-10-11 12:00] VITALS: BP 116/71
[2017-10-11 15:00] VITALS: BP 114/74
[2017-10-11] MEDS: HYDROmorphone HCL 2 MG TAB PO PRN (15:45)
[2017-10-11] MEDS: traZODone HCL 50 MG TAB PO SCH (17:28)
[2017-10-11 20:00] VITALS: BP 119/74
[2017-10-11] MEDS: ATORVASTATIN 20 MG TAB PO SCH (21:43)
[2017-10-11] MEDS: ALPRAZolam 0.5 MG TAB PO PRN (21:47)
[2017-10-11] MEDS: ARIPIPRAZOLE 2 MG PO SCH (21:49)
[2017-10-11 22:25] VITALS: BP 114/67
[2017-10-12] MEDS: hydrALAZINE HCL 25 MG TAB PO SCH ×3 (04:57→21:41)
[2017-10-12] MEDS: ISOSORBIDE DINITRATE 10 MG TAB PO SCH ×3 (04:58→21:45)
[2017-10-12] MEDS: SODIUM CHLOR 0.9% PF (SALINE LOCK) 10ML VIAL/SYR IV SCH ×3 (04:58→22:01)
[2017-10-12 05:16] VITALS: BP 102/44
[2017-10-12] MEDS: SUCRALFATE 1 GM TAB PO SCH ×3 (05:16→21:59)
[2017-10-12] MEDS: GABAPENTIN 300 MG CAP PO SCH ×3 (05:16→22:00)
[2017-10-12] MEDS: InsuLIN REG 1unit/0.01ml Soln (100units/ml) SC SCH ×4 (05:23→22:00)
[2017-10-12] MEDS: ACCU-CHEK COMFORT CURVE STRIP VI SCH ×4 (05:23→22:02)
[2017-10-12 08:00] VITALS: BP 81/37
[2017-10-12] MEDS: NITROGLYCERIN 0.2MG/HR TOPICAL PATCH TD SCH (10:00)
[2017-10-12] MEDS: CARVEDILOL 3.125 MG TAB PO SCH ×2 (10:00→22:00)
[2017-10-12] MEDS: LISINOPRIL 20 MG TAB PO SCH (10:00)
[2017-10-12] MEDS: FUROSEMIDE 20 MG TAB PO SCH (10:00)
[2017-10-12] MEDS ORDERED: SODIUM CHLORIDE 0.9% 1,000 ML IV ONE (10:45)
[2017-10-12 11:44] LABS: Basophils # (auto) 0.1 uL; Basophils % (auto) 0.9 % (0.0-2.0); Eosinophils # (auto) 0.3 uL; Eosinophils % (auto) 3.6 % (0.0-7.0); Hematocrit 37.8 % (41.0-53.0); Hemoglobin 12.3 g/dL (13.5-17.5); Lymphocytes # (auto) 1.6 uL; Lymphocytes % (auto) 20.7 % (10.0-50.0); Mean Corpuscular Hemoglobin 28.2 pg (28.0-32.0); Mean Corpuscular Hgb Conc. 32.6 g/dL (32.0-36.0); Mean Corpuscular Volume 86.3 fL (80.0-100.0); Monocytes # (auto) 0.7 uL; Monocytes % (auto) 8.9 % (0.0-12.0); Neutrophils # (auto) 5.1 uL; Neutrophils % (auto) 65.9 % (37.0-80.0); Platelet Count (auto) 186 10^3/uL (140-450); Red Blood Cells 4.37 10^6/uL (4.5-5.90); Red Cell Distribution Width 15.3 % (11.8-14.3); White Blood Cell 7.7 10^3/uL (4.4-10.8)
[2017-10-12] MEDS: SERTRALINE HCL 50 MG TAB PO SCH (11:46)
[2017-10-12] MEDS: ASPirin-EC 81 mg tab PO SCH (11:47)
[2017-10-12] MEDS: buPROPion HCL 100 MG TAB PO SCH ×2 (11:47→21:59)
[2017-10-12] MEDS: CILOSTAZOL 100 MG TAB PO SCH ×2 (11:47→21:59)
[2017-10-12] MEDS: PANTOPRAZOLE 40 MG TAB PO SCH (11:47)
[2017-10-12] MEDS: PRASUGREL HCL 10 MG TAB PO SCH (11:47)
[2017-10-12 12:00] VITALS: BP 100/65
[2017-10-12 12:02] LABS: Calcium 8.5 mg/dL (8.5-10.1); Potassium 4.2 mmol/L (3.5-5.1)
[2017-10-12 15:00] VITALS: BP 107/52
[2017-10-12] MEDS: LORazepam 0.5 MG TAB PO PRN (15:06)
[2017-10-12] MEDS: traZODone HCL 50 MG TAB PO SCH (18:00)
[2017-10-12] MEDS: ALPRAZolam 0.5 MG TAB PO PRN (21:59)
[2017-10-12 22:00] VITALS: BP 111/64
[2017-10-12] MEDS: ATORVASTATIN 20 MG TAB PO SCH (22:00)
[2017-10-12] MEDS: ARIPIPRAZOLE 2 MG PO SCH (22:00)
[2017-10-12] MEDS: HYDROmorphone HCL 2 MG TAB PO PRN (22:01)
[2017-10-13 05:00] VITALS: BP 93/52
[2017-10-13] MEDS: hydrALAZINE HCL 25 MG TAB PO SCH (05:47)
[2017-10-13] MEDS: ISOSORBIDE DINITRATE 10 MG TAB PO SCH (05:48)
[2017-10-13] MEDS: SUCRALFATE 1 GM TAB PO SCH ×3 (05:55→21:22)
[2017-10-13] MEDS: GABAPENTIN 300 MG CAP PO SCH ×3 (05:55→21:23)
[2017-10-13] MEDS: SODIUM CHLOR 0.9% PF (SALINE LOCK) 10ML VIAL/SYR IV SCH ×3 (05:58→22:00)
[2017-10-13] MEDS: InsuLIN REG 1unit/0.01ml Soln (100units/ml) SC SCH ×4 (05:59→21:23)
[2017-10-13] MEDS: ACCU-CHEK COMFORT CURVE STRIP VI SCH ×4 (05:59→21:24)
[2017-10-13 08:00] VITALS: BP 92/56
[2017-10-13 08:14] VITALS: BP 92/56
[2017-10-13] MEDS: SODIUM CHLORIDE 0.9% 1,000 ML IV SCH ×2 (08:15→18:31)
[2017-10-13] MEDS: PRASUGREL HCL 10 MG TAB PO SCH (09:23)
[2017-10-13] MEDS: CILOSTAZOL 100 MG TAB PO SCH ×2 (09:24→21:22)
[2017-10-13] MEDS: ASPirin-EC 81 mg tab PO SCH (09:24)
[2017-10-13] MEDS: SERTRALINE HCL 50 MG TAB PO SCH (09:24)
[2017-10-13] MEDS: buPROPion HCL 100 MG TAB PO SCH ×2 (09:24→21:22)
[2017-10-13] MEDS: NITROGLYCERIN 0.2MG/HR TOPICAL PATCH TD SCH (10:00)
[2017-10-13] MEDS: FUROSEMIDE 20 MG TAB PO SCH (10:00)
[2017-10-13] MEDS: CARVEDILOL 3.125 MG TAB PO SCH ×2 (10:00→21:23)
[2017-10-13] MEDS: PANTOPRAZOLE 40 MG TAB PO SCH (11:40)
[2017-10-13 13:00] VITALS: BP 105/48
[2017-10-13 15:55] LABS: Urine Bacteria NONE SEEN /hpf (None Seen); Urine Blood Negative /uL (Negative); Urine Mucus FEW (None Seen); Urine Specific Gravity 1.037 (1.001-1.035); Urine WBC 7 /hpf (0 - 3)
[2017-10-13 16:22] VITALS: BP 128/72
[2017-10-13] MEDS: traZODone HCL 50 MG TAB PO SCH (18:29)
[2017-10-13] MEDS: HYDROmorphone HCL 2 MG TAB PO PRN (18:29)
[2017-10-13] MEDS: ATORVASTATIN 20 MG TAB PO SCH (21:23)
[2017-10-13 22:00] VITALS: BP 134/66
[2017-10-13] MEDS: ARIPIPRAZOLE 2 MG PO SCH (22:00)
[2017-10-14 06:18] VITALS: BP 115/62
[2017-10-14 07:04] LABS: Protein, Urine 66.8 mg/dL (0.0-11.9)
[2017-10-14 07:37] LABS: Basophils # (auto) 0.1 uL; Basophils % (auto) 1.5 % (0.0-2.0); Eosinophils # (auto) 0.4 uL; Eosinophils % (auto) 5.9 % (0.0-7.0); Hemoglobin 12.2 g/dL (13.5-17.5); Lymphocytes # (auto) 1.6 uL; Lymphocytes % (auto) 27.7 % (10.0-50.0); Mean Corpuscular Hgb Conc. 33.9 g/dL (32.0-36.0); Mean Corpuscular Volume 85.5 fL (80.0-100.0); Monocytes # (auto) 0.5 uL; Monocytes % (auto) 8.7 % (0.0-12.0); Neutrophils # (auto) 3.3 uL; Neutrophils % (auto) 56.2 % (37.0-80.0); Platelet Count (auto) 173 10^3/uL (140-450); Red Blood Cells 4.21 10^6/uL (4.5-5.90); Red Cell Distribution Width 15.1 % (11.8-14.3)
[2017-10-14 08:07] LABS: BUN/Creatinine Ratio 9.3; Calcium 8.1 mg/dL (8.5-10.1); Phosphorus 2.6 mg/dL (2.5-4.90); Potassium 4.1 mmol/L (3.5-5.1); Uric Acid 7.6 mg/dL (3.5-7.2)
[2017-10-14 08:34] VITALS: BP 101/66
[2017-10-14] MEDS: NITROGLYCERIN 0.2MG/HR TOPICAL PATCH TD SCH (10:00)
[2017-10-14] MEDS: buPROPion HCL 100 MG TAB PO SCH ×2 (10:03→21:18)
[2017-10-14] MEDS: ASPirin-EC 81 mg tab PO SCH (10:03)
[2017-10-14] MEDS: PRASUGREL HCL 10 MG TAB PO SCH (10:03)
[2017-10-14] MEDS: HYDROmorphone HCL 2 MG TAB PO PRN (10:04)
[2017-10-14] MEDS: SERTRALINE HCL 50 MG TAB PO SCH (10:04)
[2017-10-14] MEDS: FUROSEMIDE 20 MG TAB PO SCH (10:05)
[2017-10-14] MEDS: PANTOPRAZOLE 40 MG TAB PO SCH (10:05)
[2017-10-14] MEDS: CARVEDILOL 3.125 MG TAB PO SCH ×2 (10:05→21:19)
[2017-10-14] MEDS: CILOSTAZOL 100 MG TAB PO SCH ×2 (10:21→21:19)
[2017-10-14] MEDS: InsuLIN REG 1unit/0.01ml Soln (100units/ml) SC SCH ×3 (11:30→21:21)
[2017-10-14] MEDS: ACCU-CHEK COMFORT CURVE STRIP VI SCH ×3 (11:52→21:22)
[2017-10-14 12:57] VITALS: BP 116/71
[2017-10-14] MEDS: GABAPENTIN 300 MG CAP PO SCH ×2 (13:35→21:18)
[2017-10-14] MEDS: SUCRALFATE 1 GM TAB PO SCH ×2 (13:35→21:18)
[2017-10-14] MEDS: SODIUM CHLOR 0.9% PF (SALINE LOCK) 10ML VIAL/SYR IV SCH ×2 (13:37→21:19)
[2017-10-14] MEDS: SODIUM CHLORIDE 0.9% 1,000 ML IV SCH ×2 (13:37→17:55)
[2017-10-14 16:21] VITALS: BP 157/85
[2017-10-14] MEDS: traZODone HCL 50 MG TAB PO SCH (17:48)
[2017-10-14] MEDS: ATORVASTATIN 20 MG TAB PO SCH (21:18)
[2017-10-14] MEDS: ARIPIPRAZOLE 2 MG PO SCH (21:19)
[2017-10-14 22:58] VITALS: BP 141/85
[2017-10-15 05:10] VITALS: BP 140/65
[2017-10-15] MEDS: SODIUM CHLOR 0.9% PF (SALINE LOCK) 10ML VIAL/SYR IV SCH ×3 (05:25→21:51)
[2017-10-15] MEDS: SUCRALFATE 1 GM TAB PO SCH ×3 (05:35→21:52)
[2017-10-15] MEDS: GABAPENTIN 300 MG CAP PO SCH ×3 (05:35→21:57)
[2017-10-15] MEDS: ACCU-CHEK COMFORT CURVE STRIP VI SCH ×4 (05:36→21:54)
[2017-10-15] MEDS: InsuLIN REG 1unit/0.01ml Soln (100units/ml) SC SCH ×4 (05:36→21:54)
[2017-10-15 06:59] LABS: Basophils # (auto) 0.1 uL; Basophils % (auto) 1.9 % (0.0-2.0); Eosinophils # (auto) 0.4 uL; Eosinophils % (auto) 5.7 % (0.0-7.0); Hematocrit 36.5 % (41.0-53.0); Hemoglobin 12.2 g/dL (13.5-17.5); Lymphocytes # (auto) 1.3 uL; Lymphocytes % (auto) 21.6 % (10.0-50.0); Mean Corpuscular Hemoglobin 28.7 pg (28.0-32.0); Mean Corpuscular Hgb Conc. 33.4 g/dL (32.0-36.0); Monocytes # (auto) 0.5 uL; Monocytes % (auto) 8.2 % (0.0-12.0); Neutrophils # (auto) 3.9 uL; Neutrophils % (auto) 62.6 % (37.0-80.0); Nucleated Red Blood Cells % 0.1 %; Platelet Count (auto) 200 10^3/uL (140-450); Red Blood Cells 4.25 10^6/uL (4.5-5.90); Red Cell Distribution Width 15.7 % (11.8-14.3); White Blood Cell 6.2 10^3/uL (4.4-10.8)
[2017-10-15 07:20] LABS: BUN/Creatinine Ratio 8.9; Calcium 8.5 mg/dL (8.5-10.1); Potassium 4.5 mmol/L (3.5-5.1)
[2017-10-15] MEDS: SOD CHL 0.45% 1,000 ML IV SCH ×2 (07:45→17:44)
[2017-10-15 08:24] VITALS: BP 125/75
[2017-10-15] MEDS: NITROGLYCERIN 0.2MG/HR TOPICAL PATCH TD SCH (10:00)
[2017-10-15] MEDS: SERTRALINE HCL 50 MG TAB PO SCH (10:28)
[2017-10-15] MEDS: buPROPion HCL 100 MG TAB PO SCH ×2 (10:28→21:53)
[2017-10-15] MEDS: PANTOPRAZOLE 40 MG TAB PO SCH (10:28)
[2017-10-15] MEDS: ASPirin-EC 81 mg tab PO SCH (10:28)
[2017-10-15] MEDS: CARVEDILOL 3.125 MG TAB PO SCH ×2 (10:29→21:54)
[2017-10-15] MEDS: PRASUGREL HCL 10 MG TAB PO SCH (10:29)
[2017-10-15] MEDS: FUROSEMIDE 20 MG TAB PO SCH (10:29)
[2017-10-15] MEDS: CILOSTAZOL 100 MG TAB PO SCH ×2 (10:29→21:53)
[2017-10-15] MEDS: PROMETHAZINE HCL 25 MG/ML 1ML IV PRN (10:42)
[2017-10-15 12:50] VITALS: BP 168/85
[2017-10-15] MEDS: LEVOTHYROXINE SODIUM 50 MCG TAB PO SCH (14:10)
[2017-10-15] MEDS: LORazepam 0.5 MG TAB PO PRN (14:13)
[2017-10-15 17:00] VITALS: BP 161/45
[2017-10-15] MEDS: traZODone HCL 50 MG TAB PO SCH (17:44)
[2017-10-15] MEDS: ARIPIPRAZOLE 2 MG PO SCH (21:51)
[2017-10-15] MEDS: ATORVASTATIN 20 MG TAB PO SCH (21:53)
[2017-10-15 22:00] VITALS: BP 126/78
[2017-10-16 05:00] VITALS: BP 129/74
[2017-10-16] MEDS: SODIUM CHLOR 0.9% PF (SALINE LOCK) 10ML VIAL/SYR IV SCH (06:24)
[2017-10-16] MEDS: SUCRALFATE 1 GM TAB PO SCH (06:24)
[2017-10-16] MEDS: LEVOTHYROXINE SODIUM 50 MCG TAB PO SCH (06:24)
[2017-10-16] MEDS: GABAPENTIN 300 MG CAP PO SCH (06:24)
[2017-10-16] MEDS: InsuLIN REG 1unit/0.01ml Soln (100units/ml) SC SCH ×2 (06:43→11:30)
[2017-10-16] MEDS: SOD CHL 0.45% 1,000 ML IV SCH (06:44)
[2017-10-16] MEDS: ACCU-CHEK COMFORT CURVE STRIP VI SCH ×2 (06:44→11:30)
[2017-10-16 07:12] LABS: Basophils # (auto) 0.1 uL; Basophils % (auto) 2.2 % (0.0-2.0); Eosinophils # (auto) 0.4 uL; Eosinophils % (auto) 6.4 % (0.0-7.0); Hematocrit 35.5 % (41.0-53.0); Hemoglobin 11.8 g/dL (13.5-17.5); Lymphocytes # (auto) 1.9 uL; Lymphocytes % (auto) 32.8 % (10.0-50.0); Mean Corpuscular Hemoglobin 28.6 pg (28.0-32.0); Mean Corpuscular Hgb Conc. 33.2 g/dL (32.0-36.0); Monocytes # (auto) 0.5 uL; Monocytes % (auto) 9.7 % (0.0-12.0); Neutrophils # (auto) 2.8 uL; Neutrophils % (auto) 48.9 % (37.0-80.0); Nucleated Red Blood Cells % 0.2 %; Platelet Count (auto) 202 10^3/uL (140-450); Red Blood Cells 4.13 10^6/uL (4.5-5.90); Red Cell Distribution Width 15.1 % (11.8-14.3); White Blood Cell 5.7 10^3/uL (4.4-10.8)
[2017-10-16 08:38] LABS: BUN/Creatinine Ratio 9.4; Calcium 8.3 mg/dL (8.5-10.1)
[2017-10-16 09:00] VITALS: BP 147/69
[2017-10-16] MEDS: FUROSEMIDE 20 MG TAB PO SCH (10:00)
[2017-10-16] MEDS: CARVEDILOL 3.125 MG TAB PO SCH (10:00)
[2017-10-16] MEDS: buPROPion HCL 100 MG TAB PO SCH (10:00)
[2017-10-16] MEDS: PRASUGREL HCL 10 MG TAB PO SCH (10:00)
[2017-10-16] MEDS: NITROGLYCERIN 0.2MG/HR TOPICAL PATCH TD SCH (10:00)
[2017-10-16] MEDS: CILOSTAZOL 100 MG TAB PO SCH (10:00)
[2017-10-16] MEDS: SERTRALINE HCL 50 MG TAB PO SCH (10:00)
[2017-10-16] MEDS: PANTOPRAZOLE 40 MG TAB PO SCH (10:00)
[2017-10-16] MEDS: ASPirin-EC 81 mg tab PO SCH (10:00)
[2017-10-16 12:07] VITALS: BP 119/72
[2017-10-16 13:00] VITALS: BP 132/70
== END 2017-10-16 14:56 | disposition home or self-care (01) | DRG 246 ==
LOC: ER 13:57 → TELE 13:58 → TELE-WESTW 23:42
PROVIDERS: ADMIT Internal Medicine; ATTEND Internal Medicine
PROC: 027034Z Dilation of Coronary Artery, One Artery with Drug-eluting Intraluminal Device, Percutaneous Approach (ICD-10-PCS; principal; 2017-10-10)
PROC: 02C03ZZ Extirpation of Matter from Coronary Artery, One Artery, Percutaneous Approach (ICD-10-PCS; 2017-10-10)
PROC: 02703ZZ Dilation of Coronary Artery, One Artery, Percutaneous Approach (ICD-10-PCS; 2017-10-10)
PROC: 4A023N7 Measurement of Cardiac Sampling and Pressure, Left Heart, Percutaneous Approach (ICD-10-PCS; 2017-10-10)
PROC: B2111ZZ Fluoroscopy of Multiple Coronary Arteries using Low Osmolar Contrast (ICD-10-PCS; 2017-10-10)
PROC: B2121ZZ Fluoroscopy of Single Coronary Artery Bypass Graft using Low Osmolar Contrast (ICD-10-PCS; 2017-10-10)
PROC: B2181ZZ Fluoroscopy of Left Internal Mammary Bypass Graft using Low Osmolar Contrast (ICD-10-PCS; 2017-10-10)
PROC: B2151ZZ Fluoroscopy of Left Heart using Low Osmolar Contrast (ICD-10-PCS; 2017-10-10)
DX: T82.855A Stenosis of coronary artery stent, initial encounter (principal); N17.0 Acute kidney failure with tubular necrosis; I13.0 Hypertensive heart and chronic kidney disease with heart failure and stage 1 through stage 4 chronic kidney disease, or unspecified chronic kidney disease; E44.0 Moderate protein-calorie malnutrition; I50.30 Unspecified diastolic (congestive) heart failure; E87.2 Acidosis; I42.9 Cardiomyopathy, unspecified; I25.110 Atherosclerotic heart disease of native coronary artery with unstable angina pectoris; N18.4 Chronic kidney disease, stage 4 (severe); E78.5 Hyperlipidemia, unspecified; E11.21 Type 2 diabetes mellitus with diabetic nephropathy; Y83.8 Other surgical procedures as the cause of abnormal reaction of the patient, or of later complication, without mention of misadventure at the time of the procedure; J44.9 Chronic obstructive pulmonary disease, unspecified; E11.22 Type 2 diabetes mellitus with diabetic chronic kidney disease; F32.9 Major depressive disorder, single episode, unspecified; E11.65 Type 2 diabetes mellitus with hyperglycemia; E11.51 Type 2 diabetes mellitus with diabetic peripheral angiopathy without gangrene; E11.319 Type 2 diabetes mellitus with unspecified diabetic retinopathy without macular edema; F17.210 Nicotine dependence, cigarettes, uncomplicated; F41.0 Panic disorder [episodic paroxysmal anxiety]; G89.29 Other chronic pain; Z82.0 Family history of epilepsy and other diseases of the nervous system; I25.2 Old myocardial infarction; Y92.89 Other specified places as the place of occurrence of the external cause; Z82.3 Family history of stroke; Z82.49 Family history of ischemic heart disease and other diseases of the circulatory system; Z83.3 Family history of diabetes mellitus; Z89.411 Acquired absence of right great toe; Z89.429 Acquired absence of other toe(s), unspecified side; Z95.1 Presence of aortocoronary bypass graft; Z79.82 Long term (current) use of aspirin; Z79.899 Other long term (current) drug therapy; Z90.49 Acquired absence of other specified parts of digestive tract; Z68.21 Body mass index [BMI] 21.0-21.9, adult
CPT/HCPCS: 36415; 70450; 71046; 80048; 80053; 80061; 80307; 81001; 82550; 82570; 82962; 83036; 83735; 83880; 84100; 84156; 84300; 84443; 84484; 84550; 85025; 85379; 85610; 85652; 85730; 86141; 87081; 92924; 92928; 93005; 93458; 93886; 94761; 96372; 96374; 96375; 99152; 99153; C1874; C1887; J1815; J2250; Q9967

== ENCOUNTER 2017-12-20 23:38 | Inpatient (IN) | payer OTHER, MEDICAID ==
[~2017-12-20] VITALS: Ht 167.6 cm; Wt 56.2 kg
[~2017-12-20 23:38] MED LIST changes: -CILO100T PO; +HYDR-4296 PO; -HYDR25TA35 PO; -HYDR2INJ9 PO; -LEVO50TA7 PO; -LEVO75TA6 PO; -METO25TA5 PO
[2017-12-21 01:10] LABS: Basophils # (auto) 0.1 uL; Basophils % (auto) 1.8 % (0.0-2.0); Eosinophils # (auto) 0.2 uL; Hematocrit 28.2 % (41.0-53.0); Hemoglobin 9.3 g/dL (13.5-17.5); Lymphocytes # (auto) 2.3 uL; Lymphocytes % (auto) 28.1 % (10.0-50.0); Mean Corpuscular Hemoglobin 29.2 pg (28.0-32.0); Mean Corpuscular Hgb Conc. 33.1 g/dL (32.0-36.0); Mean Corpuscular Volume 88.1 fL (80.0-100.0); Monocytes # (auto) 0.7 uL; Monocytes % (auto) 8.5 % (0.0-12.0); Neutrophils # (auto) 4.7 uL; Neutrophils % (auto) 58.6 % (37.0-80.0); Platelet Count (auto) 282 10^3/uL (140-450); Red Cell Distribution Width 16.8 % (11.8-14.3)
[2017-12-21 01:26] LABS: Albumin 3.3 g/dL (3.4-5.0); Calcium 8.3 mg/dL (8.5-10.1); INR 0.93 (0.9-1.15); Magnesium 2.1 mg/dL (1.6-2.6); Partial Thromboplastin Time 27.7 sec (23.78-33.04); Potassium 3.5 mmol/L (3.5-5.1)
[2017-12-21 01:28] LABS: BUN/Creatinine Ratio 9.4
[2017-12-21 01:33] LABS: Bilirubin, Total 0.6 mg/dL (0.2-1.0); Total Protein 6.5 g/dL (6.4-8.2)
[2017-12-21] MEDS ORDERED: ACETAMINOPHEN 325 MG TAB PO PRN (05:45)
[2017-12-21] MEDS ORDERED: ONDANSETRON HCL 4 MG/2 ML VIAL IV PRN (05:45)
[2017-12-21] MEDS ORDERED: NITROGLYCERIN 0.4 MG SL TAB SL PRN ×2 (05:45→11:15)
[2017-12-21] MEDS ORDERED: MORPHINE SULF INJ 2 MG/ML SYRINGE 1ML IV PRN (05:45)
[2017-12-21] MEDS ORDERED: DEXTROSE (50%) 50ML SYRG IV PRN (05:45)
[2017-12-21] MEDS ORDERED: TEMAZEPAM 15 MG CAP PO PRN (05:45)
[2017-12-21] MEDS: ACCU-CHEK COMFORT CURVE STRIP VI SCH ×3 (06:00→18:09)
[2017-12-21] MEDS: GABAPENTIN 300 MG CAP PO SCH ×3 (06:00→21:57)
[2017-12-21] MEDS: InsuLIN REG 1unit/0.01ml Soln (100units/ml) SC SCH ×3 (06:00→18:00)
[2017-12-21] MEDS: FUROSEMIDE 20 MG TAB PO SCH ×2 (06:00→18:10)
[2017-12-21] MEDS ORDERED: ENOXAPARIN SOD 60 MG/0.6 ML SYRINGE SC ONE (07:00)
[2017-12-21] MEDS: buPROPion HCL 75 MG TAB PO SCH ×2 (07:53→18:09)
[2017-12-21] MEDS ORDERED: CLOPIDOGREL BISULFATE 75 MG TAB PO SCH (10:00)
[2017-12-21] MEDS: ASPirin 81 mg TAB PO SCH (10:03)
[2017-12-21] MEDS: LISINOPRIL 20 MG TAB PO SCH (10:04)
[2017-12-21] MEDS: ISOSORBIDE MONONITRATE 20 MG TAB PO SCH ×2 (10:04→21:56)
[2017-12-21] MEDS: MORPHINE SULF INJ 2 MG/ML SYRINGE 1ML IV PRN (11:22)
[2017-12-21 14:02] VITALS: BP 131/62
[2017-12-21] MEDS: LORazepam 0.5 MG TAB PO PRN (15:31)
[2017-12-21 17:01] VITALS: BP 108/65
[2017-12-21 17:13] LABS: Alcohol, Urine < 3.0 mg/dL (0-5); Amphetamine Screen, Urine NEGATIVE (NEGATIVE); Barbiturate Scree,Urine NEGATIVE (NEGATIVE); Benzodiazephine Screen, Urine NEGATIVE (NEGATIVE); Cannabinoid Screen, Urine NEGATIVE (NEGATIVE); Cocaine Screen, Urine NEGATIVE (NEGATIVE); Opiate Scree,Urine POSITIVE (NEGATIVE); Phencyclidine Screen, Urine NEGATIVE (NEGATIVE)
[2017-12-21] MEDS: HYDROcodone-ACET 5/325MG TAB PO PRN (18:10)
[2017-12-21] MEDS: ATORVASTATIN 20 MG TAB PO SCH (21:57)
[2017-12-21 22:00] VITALS: BP 92/57
[2017-12-22] MEDS: ACCU-CHEK COMFORT CURVE STRIP VI SCH ×5 (00:57→23:57)
[2017-12-22] MEDS: LORazepam 0.5 MG TAB PO PRN ×2 (00:58→22:20)
[2017-12-22] MEDS: HYDROcodone-ACET 5/325MG TAB PO PRN ×3 (00:58→22:12)
[2017-12-22 05:00] VITALS: BP 98/52
[2017-12-22] MEDS: FUROSEMIDE 20 MG TAB PO SCH ×2 (06:00→17:58)
[2017-12-22] MEDS: InsuLIN REG 1unit/0.01ml Soln (100units/ml) SC SCH ×5 (06:00→23:56)
[2017-12-22 06:14] LABS: Basophils # (auto) 0.1 uL; Basophils % (auto) 1.8 % (0.0-2.0); Eosinophils # (auto) 0.4 uL; Eosinophils % (auto) 5.9 % (0.0-7.0); Hematocrit 24.9 % (41.0-53.0); Hemoglobin 8.5 g/dL (13.5-17.5); Lymphocytes # (auto) 2.1 uL; Lymphocytes % (auto) 32.6 % (10.0-50.0); Mean Corpuscular Hemoglobin 30.4 pg (28.0-32.0); Mean Corpuscular Hgb Conc. 34.1 g/dL (32.0-36.0); Mean Corpuscular Volume 89.1 fL (80.0-100.0); Monocytes # (auto) 0.6 uL; Monocytes % (auto) 8.6 % (0.0-12.0); Neutrophils # (auto) 3.3 uL; Neutrophils % (auto) 51.1 % (37.0-80.0); Platelet Count (auto) 269 10^3/uL (140-450); Red Cell Distribution Width 17.4 % (11.8-14.3); White Blood Cell 6.5 10^3/uL (4.4-10.8)
[2017-12-22] MEDS: GABAPENTIN 300 MG CAP PO SCH ×3 (06:38→22:06)
[2017-12-22] MEDS: PANTOPRAZOLE 40 MG TAB PO SCH (06:38)
[2017-12-22] MEDS: buPROPion HCL 75 MG TAB PO SCH ×2 (06:39→17:57)
[2017-12-22 06:41] LABS: Albumin 2.8 g/dL (3.4-5.0); BUN/Creatinine Ratio 9.9; Bilirubin, Total 0.4 mg/dL (0.2-1.0); Calcium 7.7 mg/dL (8.5-10.1); Potassium 3.7 mmol/L (3.5-5.1); Total Protein 5.4 g/dL (6.4-8.2)
[2017-12-22 09:32] VITALS: BP 95/52
[2017-12-22] MEDS: LISINOPRIL 20 MG TAB PO SCH (10:00)
[2017-12-22] MEDS: ISOSORBIDE MONONITRATE 20 MG TAB PO SCH ×2 (10:00→22:05)
[2017-12-22] MEDS: MORPHINE SULF INJ 2 MG/ML SYRINGE 1ML IV PRN ×2 (10:35→14:27)
[2017-12-22] MEDS: ASPirin 81 mg TAB PO SCH (10:36)
[2017-12-22 12:30] VITALS: BP 102/61
[2017-12-22 16:50] VITALS: BP 113/71
[2017-12-22 22:00] VITALS: BP 125/84
[2017-12-22] MEDS: ATORVASTATIN 20 MG TAB PO SCH (22:06)
[2017-12-22] MEDS ORDERED: MORPHINE SULF INJ 2 MG/ML SYRINGE 1ML IV ONE (23:30)
[2017-12-23 05:00] VITALS: BP 102/65
[2017-12-23] MEDS: InsuLIN REG 1unit/0.01ml Soln (100units/ml) SC SCH ×3 (06:00→18:00)
[2017-12-23] MEDS: GABAPENTIN 300 MG CAP PO SCH ×3 (06:29→21:57)
[2017-12-23] MEDS: FUROSEMIDE 20 MG TAB PO SCH ×2 (06:29→18:17)
[2017-12-23] MEDS: PANTOPRAZOLE 40 MG TAB PO SCH (06:29)
[2017-12-23] MEDS: ACCU-CHEK COMFORT CURVE STRIP VI SCH ×3 (06:29→18:06)
[2017-12-23] MEDS: buPROPion HCL 75 MG TAB PO SCH ×2 (06:30→18:16)
[2017-12-23 08:30] VITALS: BP 106/85
[2017-12-23] MEDS: ASPirin 81 mg TAB PO SCH (09:29)
[2017-12-23] MEDS: ISOSORBIDE MONONITRATE 20 MG TAB PO SCH ×2 (09:31→21:56)
[2017-12-23] MEDS: LORazepam 0.5 MG TAB PO PRN ×2 (10:01→21:57)
[2017-12-23 12:30] VITALS: BP 120/70
[2017-12-23 16:55] VITALS: BP 111/61
[2017-12-23] MEDS: MORPHINE SULF INJ 2 MG/ML SYRINGE 1ML IV PRN (17:09)
[2017-12-23] MEDS: Glucerna Carbsteady SHAKE Stawberry 8oz PO SCH (18:07)
[2017-12-23] MEDS: ATORVASTATIN 20 MG TAB PO SCH (21:57)
[2017-12-23 22:00] VITALS: BP 109/79
[2017-12-24] VITALS (8 sets, daily range): BP systolic 96–170; BP diastolic 48–77
[2017-12-24] MEDS ORDERED: FUROSEMIDE 20 MG/2 ML VIAL IV ONE
[2017-12-24] MEDS: ACCU-CHEK COMFORT CURVE STRIP VI SCH ×4 (00:12→17:49)
[2017-12-24] MEDS: MORPHINE SULF INJ 2 MG/ML SYRINGE 1ML IV PRN ×3 (02:00→20:13)
[2017-12-24] MEDS: FUROSEMIDE 20 MG TAB PO SCH ×2 (06:00→17:49)
[2017-12-24] MEDS: InsuLIN REG 1unit/0.01ml Soln (100units/ml) SC SCH ×4 (06:00→18:00)
[2017-12-24] MEDS: GABAPENTIN 300 MG CAP PO SCH ×3 (06:09→21:47)
[2017-12-24] MEDS: buPROPion HCL 75 MG TAB PO SCH ×2 (06:09→17:52)
[2017-12-24] MEDS: PANTOPRAZOLE 40 MG TAB PO SCH (06:09)
[2017-12-24] MEDS: ASPirin 81 mg TAB PO SCH (08:06)
[2017-12-24] MEDS: Glucerna Carbsteady SHAKE Stawberry 8oz PO SCH ×2 (08:06→17:53)
[2017-12-24] MEDS: ISOSORBIDE MONONITRATE 20 MG TAB PO SCH ×2 (10:00→21:48)
[2017-12-24 10:01] LABS: Eosinophils # (auto) 0.3 uL; Red Cell Distribution Width 17.9 % (11.8-14.3)
[2017-12-24 10:03] LABS: Basophils # (auto) 0.1 uL; Eosinophils % (auto) 4.6 % (0.0-7.0); Hemoglobin 10.9 g/dL (13.5-17.5); Lymphocytes # (auto) 1.7 uL; Lymphocytes % (auto) 23.4 % (10.0-50.0); Mean Corpuscular Hemoglobin 30.3 pg (28.0-32.0); Mean Corpuscular Hgb Conc. 31.2 g/dL (32.0-36.0); Mean Corpuscular Volume 97.1 fL (80.0-100.0); Monocytes # (auto) 0.6 uL; Monocytes % (auto) 7.5 % (0.0-12.0); Neutrophils # (auto) 4.7 uL; Neutrophils % (auto) 63.5 % (37.0-80.0); Platelet Count (auto) 298 10^3/uL (140-450); Red Blood Cells 3.61 10^6/uL (4.5-5.90); White Blood Cell 7.4 10^3/uL (4.4-10.8)
[2017-12-24] MEDS: LORazepam 0.5 MG TAB PO PRN (17:49)
[2017-12-24] MEDS: ATORVASTATIN 20 MG TAB PO SCH (21:47)
[2017-12-25] MEDS: MORPHINE SULF INJ 2 MG/ML SYRINGE 1ML IV PRN (01:14)
[2017-12-25 05:00] VITALS: BP 103/67
[2017-12-25] MEDS: InsuLIN REG 1unit/0.01ml Soln (100units/ml) SC SCH ×3 (06:00→12:00)
[2017-12-25] MEDS: FUROSEMIDE 20 MG TAB PO SCH (06:17)
[2017-12-25] MEDS: buPROPion HCL 75 MG TAB PO SCH (06:18)
[2017-12-25] MEDS: GABAPENTIN 300 MG CAP PO SCH ×2 (06:18→14:00)
[2017-12-25] MEDS: PANTOPRAZOLE 40 MG TAB PO SCH (06:18)
[2017-12-25] MEDS: ACCU-CHEK COMFORT CURVE STRIP VI SCH ×3 (06:18→12:13)
[2017-12-25] MEDS: Glucerna Carbsteady SHAKE Stawberry 8oz PO SCH ×2 (08:00→18:00)
[2017-12-25 08:30] VITALS: BP 107/65
[2017-12-25] MEDS: ASPirin 81 mg TAB PO SCH (10:00)
[2017-12-25] MEDS: ISOSORBIDE MONONITRATE 20 MG TAB PO SCH (10:00)
[2017-12-25 12:49] VITALS: BP 100/62
[2017-12-25] MEDS: LORazepam 0.5 MG TAB PO PRN (14:50)
[2017-12-25 16:38] VITALS: BP 98/66
[2017-12-25 17:12] VITALS: BP 98/66
== END 2017-12-25 18:00 | disposition home or self-care (01) | DRG 281 ==
LOC: EDBD 23:38 → EDUNIT# 23:38 → ER 23:44 → TELE 23:45 → TELE-WESTW 12-21 12:27
PROVIDERS: ADMIT Nurse Practitioner; ATTEND Specialist
PROC: 30233N1 Transfusion of Nonautologous Red Blood Cells into Peripheral Vein, Percutaneous Approach (ICD-10-PCS; principal; 2017-12-23)
DX: I21.4 Non-ST elevation (NSTEMI) myocardial infarction (principal); I13.0 Hypertensive heart and chronic kidney disease with heart failure and stage 1 through stage 4 chronic kidney disease, or unspecified chronic kidney disease; F11.20 Opioid dependence, uncomplicated; I25.110 Atherosclerotic heart disease of native coronary artery with unstable angina pectoris; I25.5 Ischemic cardiomyopathy; N18.3 Chronic kidney disease, stage 3 (moderate); E03.9 Hypothyroidism, unspecified; E11.51 Type 2 diabetes mellitus with diabetic peripheral angiopathy without gangrene; J44.9 Chronic obstructive pulmonary disease, unspecified; D63.8 Anemia in other chronic diseases classified elsewhere; E78.5 Hyperlipidemia, unspecified; F17.210 Nicotine dependence, cigarettes, uncomplicated; I50.9 Heart failure, unspecified; R62.7 Adult failure to thrive; F32.9 Major depressive disorder, single episode, unspecified; E11.22 Type 2 diabetes mellitus with diabetic chronic kidney disease; E11.65 Type 2 diabetes mellitus with hyperglycemia; F41.9 Anxiety disorder, unspecified; R55 Syncope and collapse; Z82.0 Family history of epilepsy and other diseases of the nervous system; Z82.3 Family history of stroke; Z82.49 Family history of ischemic heart disease and other diseases of the circulatory system; Z79.4 Long term (current) use of insulin; I25.2 Old myocardial infarction; Z83.3 Family history of diabetes mellitus; Z95.1 Presence of aortocoronary bypass graft; Z95.810 Presence of automatic (implantable) cardiac defibrillator; Z90.49 Acquired absence of other specified parts of digestive tract
CPT/HCPCS: 36415; 71045; 78582; 80053; 80307; 82962; 83735; 83880; 84443; 84484; 85025; 85379; 85610; 85730; 86850; 86900; 86901; 86920; 87081; 93005; 93306; 94761; 96372; 96374; 96375; J1815; J2405

== ENCOUNTER 2018-04-14 22:06 | Emergency (ER) | payer OTHER, MEDICAID ==
[~2018-04-14] VITALS: Ht 162.6 cm; Wt 72.6 kg
[~2018-04-14 22:06] MED LIST changes: -FURO20TA3 PO; -HYDR-4683 PO; -LIS20T PO
[2018-04-14 23:52] LABS: Basophils # (auto) 0.1 uL; Eosinophils # (auto) 0.2 uL; Eosinophils % (auto) 3.2 % (0.0-7.0); Hematocrit 49.7 % (41.0-53.0); Hemoglobin 16.1 g/dL (13.5-17.5); Lymphocytes # (auto) 1.8 uL; Mean Corpuscular Hemoglobin 28.7 pg (28.0-32.0); Mean Corpuscular Hgb Conc. 32.4 g/dL (32.0-36.0); Mean Corpuscular Volume 88.6 fL (80.0-100.0); Monocytes # (auto) 0.6 uL; Neutrophils # (auto) 3.6 uL; Neutrophils % (auto) 57.8 % (37.0-80.0); Nucleated Red Blood Cells % 0.1 %; Platelet Count (auto) 227 10^3/uL (140-450); Red Blood Cells 5.61 10^6/uL (4.5-5.90); Red Cell Distribution Width 15.4 % (11.8-14.3); White Blood Cell 6.2 10^3/uL (4.4-10.8)
[2018-04-14 23:57] LABS: Urine Bacteria FEW /hpf (None Seen); Urine Blood TRACE /uL (Negative); Urine Hyaline Cast FEW /lpf (0 - 2); Urine Specific Gravity 1.005 (1.001-1.035); Urine WBC 1 /hpf (0 - 3)
[2018-04-15] MEDS ORDERED: NITROGLYCERIN 0.4 MG SL TAB SL ONE
[2018-04-15 00:09] LABS: Alanine Aminotransferase 22 U/L (16-61); Albumin 3.8 g/dL (3.4-5.0); Anion Gap 14 (5-15); Aspartate Aminotransferase 30 U/L (15-37); BUN/Creatinine Ratio 14.4; Blood Urea Nitrogen 28 mg/dL (7-18); Calcium 8.2 mg/dL (8.5-10.1); Carbon Dioxide 17 mmol/L (21-32); Chloride 106 mmol/L (98-107); GFR African American 46 mL/min; GFR Non-African American 38 mL/min; Glucose 142 mg/dL (74-106); Potassium 4.2 mmol/L (3.5-5.1); Sodium 137 mmol/L (136-145)
[2018-04-15 00:14] LABS: Alkaline Phosphatase 161 U/L (45-117); Bilirubin, Total 0.3 mg/dL (0.2-1.0); Total Protein 7.9 g/dL (6.4-8.2)
[2018-04-15 00:24] LABS: INR 0.86 (0.9-1.15); Partial Thromboplastin Time 26.2 sec (23.78-33.04); Prothrombin Time 9.3 sec (9.27-12.13)
[2018-04-15] MEDS ORDERED: SODIUM CHLORIDE 0.9% 1,000 ML IV ONE (04:00)
[2018-04-15 06:15] VITALS: BP 142/76
[2018-04-15] MEDS ORDERED: THIAMINE INJ 100 MG, MULTIPLE VITAMIN 10 ML, FOLIC ACID 1 MG, MAGNESIUM SULF SDV 50% 8 ... IV SCH ×5 (12:00)
== END 2018-04-15 06:43 | disposition home or self-care (01) ==
LOC: EDBD 22:06 → ER 22:12
DX: R07.9 Chest pain, unspecified (principal); K21.9 Gastro-esophageal reflux disease without esophagitis; F10.129 Alcohol abuse with intoxication, unspecified; I25.709 Atherosclerosis of coronary artery bypass graft(s), unspecified, with unspecified angina pectoris; E11.22 Type 2 diabetes mellitus with diabetic chronic kidney disease; I13.0 Hypertensive heart and chronic kidney disease with heart failure and stage 1 through stage 4 chronic kidney disease, or unspecified chronic kidney disease; N18.9 Chronic kidney disease, unspecified; I50.9 Heart failure, unspecified; J44.9 Chronic obstructive pulmonary disease, unspecified; E78.5 Hyperlipidemia, unspecified; I25.2 Old myocardial infarction; F17.210 Nicotine dependence, cigarettes, uncomplicated; Z79.82 Long term (current) use of aspirin; Z90.49 Acquired absence of other specified parts of digestive tract; Z95.1 Presence of aortocoronary bypass graft; Z98.61 Coronary angioplasty status; Z95.0 Presence of cardiac pacemaker; Z79.01 Long term (current) use of anticoagulants; Z79.899 Other long term (current) drug therapy
CPT/HCPCS: 36415; 71045; 80053; 80320; 81001; 83880; 84443; 84484; 85025; 85379; 85610; 85730; 93005; 94761

== ENCOUNTER 2018-06-11 10:36 | Emergency (ER) | payer OTHER, MEDICAID ==
[~2018-06-11] VITALS: Ht 172.7 cm; Wt 68.0 kg
[2018-06-11] MEDS ORDERED: SODIUM CHLORIDE 0.9% 1,000 ML IV ONE ×2 (10:56)
[2018-06-11] MEDS ORDERED: PIPERACILLIN-TAZOB 3.375GM 100 ML IV ONE (11:00)
[2018-06-11 11:47] LABS: Basophils # (auto) 0.1 uL; Basophils % (auto) 1.1 % (0.0-2.0); Eosinophils # (auto) 0.1 uL; Eosinophils % (auto) 2.7 % (0.0-7.0); Hematocrit 44.5 % (41.0-53.0); Hemoglobin 14.6 g/dL (13.5-17.5); Lymphocytes % (auto) 19.5 % (10.0-50.0); Mean Corpuscular Hemoglobin 29.6 pg (28.0-32.0); Mean Corpuscular Hgb Conc. 32.7 g/dL (32.0-36.0); Mean Corpuscular Volume 90.6 fL (80.0-100.0); Monocytes # (auto) 0.3 uL; Monocytes % (auto) 5.1 % (0.0-12.0); Neutrophils # (auto) 3.7 uL; Neutrophils % (auto) 71.6 % (37.0-80.0); Nucleated Red Blood Cells % 0.1 %; Platelet Count (auto) 141 10^3/uL (140-450); Red Blood Cells 4.91 10^6/uL (4.5-5.90); Red Cell Distribution Width 17.8 % (11.8-14.3); White Blood Cell 5.1 10^3/uL (4.4-10.8)
[2018-06-11 12:04] LABS: INR 0.92 (0.9-1.15); Partial Thromboplastin Time 27.1 sec (23.78-33.04); Prothrombin Time 9.9 sec (9.27-12.13)
[2018-06-11 12:09] LABS: Albumin 3.4 g/dL (3.4-5.0); Calcium 8.5 mg/dL (8.5-10.1); Potassium 4.4 mmol/L (3.5-5.1)
[2018-06-11 12:15] LABS: BUN/Creatinine Ratio 12.9; Bilirubin, Total 0.7 mg/dL (0.2-1.0); Total Protein 6.5 g/dL (6.4-8.2)
[2018-06-11] MEDS ORDERED: ENOXAPARIN SOD 80 MG/0.8ML SYRINGE SC ONE (16:30)
[2018-06-11] MEDS ORDERED: PROMETHAZINE HCL 25 MG/ML 1ML IV ONE (18:00)
[2018-06-11] MEDS ORDERED: MORPHINE SULFATE 4 MG/ML SYR/VIAL IV ONE (18:00)
[2018-06-11 18:18] VITALS: BP 160/90
== END 2018-06-11 19:17 | disposition short-term general hospital (02) ==
LOC: ER 10:36 → EDBD 10:36 → ER 19:17
DX: S06.309A Unspecified focal traumatic brain injury with loss of consciousness of unspecified duration, initial encounter (principal); M79.605 Pain in left leg; E11.22 Type 2 diabetes mellitus with diabetic chronic kidney disease; I13.0 Hypertensive heart and chronic kidney disease with heart failure and stage 1 through stage 4 chronic kidney disease, or unspecified chronic kidney disease; N18.9 Chronic kidney disease, unspecified; I50.23 Acute on chronic systolic (congestive) heart failure; R79.89 Other specified abnormal findings of blood chemistry; I25.709 Atherosclerosis of coronary artery bypass graft(s), unspecified, with unspecified angina pectoris; J44.9 Chronic obstructive pulmonary disease, unspecified; E78.5 Hyperlipidemia, unspecified; I10 Essential (primary) hypertension; F17.210 Nicotine dependence, cigarettes, uncomplicated; I25.2 Old myocardial infarction; Z90.49 Acquired absence of other specified parts of digestive tract; Z79.82 Long term (current) use of aspirin; Z79.899 Other long term (current) drug therapy; Z95.1 Presence of aortocoronary bypass graft; Z95.0 Presence of cardiac pacemaker; Z98.61 Coronary angioplasty status; Z79.4 Long term (current) use of insulin; W18.11XA Fall from or off toilet without subsequent striking against object, initial encounter; Y93.E1 Activity, personal bathing and showering; Y99.8 Other external cause status; Y92.89 Other specified places as the place of occurrence of the external cause
CPT/HCPCS: 36415; 36556; 51702; 70450; 71045; 72192; 74176; 80053; 83605; 83880; 84484; 85025; 85610; 85730; 87040; 93005; 96374; 96375; 99285; J2270; J2550; J7030; 96361

== ENCOUNTER 2018-07-20 01:34 | Emergency (ER) | payer OTHER, MEDICAID ==
[~2018-07-20] VITALS: Ht 167.6 cm; Wt 54.4 kg
[2018-07-20] MEDS: NITROGLYCERIN 0.4 MG SL TAB SL ONE ×2 (01:42→04:30)
[2018-07-20 03:05] LABS: Basophils # (auto) 0 uL; Basophils % (auto) 0.3 % (0.0-2.0); Eosinophils # (auto) 0.2 uL; Eosinophils % (auto) 3.5 % (0.0-7.0); Hematocrit 44.5 % (41.0-53.0); Hemoglobin 14.7 g/dL (13.5-17.5); Lymphocytes # (auto) 2.4 uL; Lymphocytes % (auto) 39.5 % (10.0-50.0); Mean Corpuscular Hemoglobin 30.4 pg (28.0-32.0); Mean Corpuscular Hgb Conc. 33.1 g/dL (32.0-36.0); Mean Corpuscular Volume 91.9 fL (80.0-100.0); Monocytes # (auto) 0.4 uL; Monocytes % (auto) 6.4 % (0.0-12.0); Neutrophils # (auto) 3.1 uL; Neutrophils % (auto) 50.3 % (37.0-80.0); Nucleated Red Blood Cells % 0.1 %; Platelet Count (auto) 208 10^3/uL (140-450); Red Blood Cells 4.85 10^6/uL (4.5-5.90); Red Cell Distribution Width 16.1 % (11.8-14.3); White Blood Cell 6.2 10^3/uL (4.4-10.8)
[2018-07-20 03:13] LABS: INR 0.89 (0.9-1.15); Partial Thromboplastin Time 22.4 sec (23.78-33.04); Prothrombin Time 9.6 sec (9.27-12.13)
[2018-07-20 03:16] LABS: Alanine Aminotransferase 25 U/L (16-61); Albumin 4.2 g/dL (3.4-5.0); Anion Gap 9 (5-15); Blood Urea Nitrogen 30 mg/dL (7-18); Calcium 9.1 mg/dL (8.5-10.1); Carbon Dioxide 21 mmol/L (21-32); Chloride 108 mmol/L (98-107); Glucose 185 mg/dL (74-106); Magnesium 2.6 mg/dL (1.6-2.6); Potassium 3.9 mmol/L (3.5-5.1); Sodium 138 mmol/L (136-145)
[2018-07-20 03:21] LABS: Alkaline Phosphatase 255 U/L (45-117); Aspartate Aminotransferase 27 U/L (15-37); BUN/Creatinine Ratio 11.3; Bilirubin, Total 0.2 mg/dL (0.2-1.0); GFR African American 32 mL/min; GFR Non-African American 26 mL/min; Total Protein 9.2 g/dL (6.4-8.2)
[2018-07-20 03:38] LABS: Urine Bacteria FEW /hpf (None Seen); Urine Blood Negative /uL (Negative); Urine Specific Gravity 1.003 (1.001-1.035); Urine WBC <1 /hpf (0 - 3)
[2018-07-20 03:51] LABS: Amphetamine Screen, Urine NEGATIVE (NEGATIVE); Barbiturate Scree,Urine NEGATIVE (NEGATIVE); Benzodiazephine Screen, Urine NEGATIVE (NEGATIVE); Cannabinoid Screen, Urine NEGATIVE (NEGATIVE); Cocaine Screen, Urine NEGATIVE (NEGATIVE); Opiate Scree,Urine NEGATIVE (NEGATIVE); Phencyclidine Screen, Urine NEGATIVE (NEGATIVE)
[2018-07-20 05:10] VITALS: BP 154/87
[2018-07-20] MEDS: MVI in SODIUM CHLORIDE 0.9% 1,010 ML ONE (06:34)
[2018-07-20] MEDS: MULTIPLE VITAMIN 10 ML, MAGNESIUM SULF SDV 50% 8 MEQ in SODIUM CHLORIDE 0.9% 1,000 ML IV SCH (06:34)
== END 2018-07-20 06:54 | disposition home or self-care (01) ==
LOC: ER 01:39
DX: F10.129 Alcohol abuse with intoxication, unspecified (principal); R07.2 Precordial pain; G89.4 Chronic pain syndrome; F41.9 Anxiety disorder, unspecified; I25.810 Atherosclerosis of coronary artery bypass graft(s) without angina pectoris; E11.22 Type 2 diabetes mellitus with diabetic chronic kidney disease; I13.0 Hypertensive heart and chronic kidney disease with heart failure and stage 1 through stage 4 chronic kidney disease, or unspecified chronic kidney disease; N18.9 Chronic kidney disease, unspecified; I50.9 Heart failure, unspecified; J44.9 Chronic obstructive pulmonary disease, unspecified; E78.00 Pure hypercholesterolemia, unspecified; I25.2 Old myocardial infarction; F17.210 Nicotine dependence, cigarettes, uncomplicated; Z95.0 Presence of cardiac pacemaker; Z98.61 Coronary angioplasty status; Z79.1 Long term (current) use of non-steroidal anti-inflammatories (NSAID); Z79.4 Long term (current) use of insulin; Z79.899 Other long term (current) drug therapy; Z86.2 Personal history of diseases of the blood and blood-forming organs and certain disorders involving the immune mechanism; Y90.6 Blood alcohol level of 120-199 mg/100 ml
CPT/HCPCS: 36415; 71045; 80053; 80307; 80320; 81001; 83735; 83880; 84443; 84484; 85025; 85610; 85730; 87040; 93005; 96374; 99284; J3411; J3475; J7030

== ENCOUNTER 2018-12-08 12:27 | Inpatient (IN) | payer OTHER, MEDICAID ==
[~2018-12-08] VITALS: Ht 167.6 cm; Wt 62.4 kg
[~2018-12-08 12:27] MED LIST changes: -ARIP1TAB16 PO; +ARIP1TAB58 PO; +ASPI-404 PO; -ASPI81TA27 PO; -LORA-654 PO; +LORA0.5T12 PO
[2018-12-08 15:54] LABS: Albumin 3.5 g/dL (3.4-5.0); Anion Gap 9 (5-15); Blood Urea Nitrogen 25 mg/dL (7-18); Calcium 8.8 mg/dL (8.5-10.1); Carbon Dioxide 21 mmol/L (21-32); Chloride 111 mmol/L (98-107); Glucose 112 mg/dL (74-106); Magnesium 2.2 mg/dL (1.6-2.6); Potassium 4.2 mmol/L (3.5-5.1); Sodium 141 mmol/L (136-145)
[2018-12-08 15:57] LABS: Alanine Aminotransferase 17 U/L (16-61); Alkaline Phosphatase 174 U/L (45-117); Aspartate Aminotransferase 22 U/L (15-37); BUN/Creatinine Ratio 12.1; Bilirubin, Total 0.6 mg/dL (0.2-1.0); GFR African American 43 mL/min; GFR Non-African American 35 mL/min; Total Protein 7.6 g/dL (6.4-8.2)
[2018-12-08 16:10] LABS: INR 0.95 (0.9-1.15); Partial Thromboplastin Time 28.5 sec (23.64-32.05)
[2018-12-08] MEDS ORDERED: MORPHINE SULF INJ 2 MG/ML SYRINGE 1ML IV PRN (16:15)
[2018-12-08] MEDS ORDERED: ACETAMINOPHEN 500 MG TAB PO PRN (16:15)
[2018-12-08] MEDS ORDERED: DEXTROSE (50%) 50ML SYRG IV PRN ×2 (16:15)
[2018-12-08] MEDS ORDERED: ONDANSETRON HCL 4 MG/2 ML VIAL IV PRN (16:15)
[2018-12-08] MEDS ORDERED: NITROGLYCERIN 0.4 MG SL TAB SL PRN (16:15)
[2018-12-08 16:21] LABS: Basophils # (auto) 0.1 uL; Basophils % (auto) 1.2 % (0.0-2.0); Eosinophils # (auto) 0.1 uL; Eosinophils % (auto) 1.2 % (0.0-7.0); Hemoglobin 16.7 g/dL (13.5-17.5); Lymphocytes # (auto) 1.9 uL; Lymphocytes % (auto) 30.4 % (10.0-50.0); Mean Corpuscular Hemoglobin 29.8 pg (28.0-32.0); Mean Corpuscular Hgb Conc. 33.4 g/dL (32.0-36.0); Mean Corpuscular Volume 89.2 fL (80.0-100.0); Monocytes # (auto) 0.6 uL; Monocytes % (auto) 10.3 % (0.0-12.0); Neutrophils # (auto) 3.5 uL; Neutrophils % (auto) 56.9 % (37.0-80.0); Nucleated Red Blood Cells % 0.3 %; Platelet Count (auto) 195 10^3/uL (140-450); Red Blood Cells 5.61 10^6/uL (4.5-5.90); Red Cell Distribution Width 16.1 % (11.8-14.3); White Blood Cell 6.1 10^3/uL (4.4-10.8)
[2018-12-08] MEDS ORDERED: NITROGLYCERIN 0.4MG/HR TOPICAL PATCH TD ONE (16:30)
[2018-12-08] MEDS ORDERED: InsuLIN REG 1unit/0.01ml Soln (100units/ml) SC SCH (17:00)
[2018-12-08] MEDS ORDERED: ACCU-CHEK COMFORT CURVE STRIP VI SCH (17:00)
[2018-12-08] MEDS: InsuLIN REG 1unit/0.01ml Soln (100units/ml) SC SCH ×2 (17:00→22:11)
[2018-12-08] MEDS: ACCU-CHEK COMFORT CURVE STRIP VI SCH ×2 (18:43→22:10)
[2018-12-08] MEDS: MORPHINE SULF INJ 2 MG/ML SYRINGE 1ML IV PRN ×2 (18:44→22:59)
[2018-12-08 18:45] VITALS: BP 155/102
--- NOTE | 2018-12-08 18:50 | NUR ---
Telemetry admit from [facility] admitted to Telemetry unit after SBAR received. AAOX4, breathing even, nonlabored, S1, S2, Abd soft nontender, LBM 12/08/18. Patient oriented to Grant Torrez RN primary RN, unit, room, bed, and unit policies regarding patient care and visiting hours. Patient now on continuous telemetry monitoring, tele box # 27 telemetry reading on arrival to unit is SINUS RHYTHM BBB 83. Patient placed on bedside oxygen, weighed by bedscale and encouraged to call if they need something. All questions and concerns addressed, patient verbalized understanding. Bed locked on the lowest position, call light within easy reach, will continue to monitor.
--- NOTE | 2018-12-08 19:20 | NUR ---
Opening Shift Note Assumed care of patient, awake and alert. No S/S of distress/SOB or pain. Instructed on POC and to call for assist PRN. Bed in lowest locked position, call light within reach, side rails up x2, fall precautions in place. Will continue to monitor for changes Q1hr and PRN.
--- NOTE | 2018-12-08 19:44 | NUR ---
CARE ENDORSED TO NOC SHIFT RN.
[2018-12-08 22:00] VITALS: BP 149/85
[2018-12-08] MEDS: ATORVASTATIN 20 MG TAB PO SCH (22:10)
[2018-12-08] MEDS: CARVEDILOL 3.125 MG TAB PO SCH (22:10)
[2018-12-08] MEDS: GABAPENTIN 300 MG CAP PO SCH (22:10)
[2018-12-08] MEDS: buPROPion HCL 100 MG TAB PO SCH (22:10)
[2018-12-08] MEDS: LORazepam 0.5 MG TAB PO PRN (22:59)
[2018-12-09] MEDS: MORPHINE SULF INJ 2 MG/ML SYRINGE 1ML IV PRN ×5 (03:48→22:27)
[2018-12-09 04:58] VITALS: BP 143/73
[2018-12-09 05:59] LABS: Basophils # (auto) 0.1 uL; Basophils % (auto) 1.2 % (0.0-2.0); Eosinophils # (auto) 0.2 uL; Eosinophils % (auto) 3.3 % (0.0-7.0); Hematocrit 45.4 % (41.0-53.0); Hemoglobin 15.2 g/dL (13.5-17.5); Lymphocytes # (auto) 2.1 uL; Lymphocytes % (auto) 39.5 % (10.0-50.0); Mean Corpuscular Hgb Conc. 33.4 g/dL (32.0-36.0); Mean Corpuscular Volume 89.8 fL (80.0-100.0); Monocytes # (auto) 0.6 uL; Monocytes % (auto) 11.5 % (0.0-12.0); Neutrophils # (auto) 2.4 uL; Neutrophils % (auto) 44.5 % (37.0-80.0); Nucleated Red Blood Cells % 0.1 %; Platelet Count (auto) 178 10^3/uL (140-450); Red Blood Cells 5.06 10^6/uL (4.5-5.90); Red Cell Distribution Width 15.8 % (11.8-14.3); White Blood Cell 5.3 10^3/uL (4.4-10.8)
[2018-12-09] MEDS: GABAPENTIN 300 MG CAP PO SCH ×3 (06:20→22:27)
[2018-12-09] MEDS: InsuLIN REG 1unit/0.01ml Soln (100units/ml) SC SCH ×4 (06:21→22:27)
[2018-12-09] MEDS: ACCU-CHEK COMFORT CURVE STRIP VI SCH ×4 (06:21→22:27)
[2018-12-09 06:24] LABS: INR 0.95 (0.9-1.15); Partial Thromboplastin Time 30.2 sec (23.64-32.05)
[2018-12-09 06:25] LABS: Cholesterol 125 mg/dL (< 200); Triglycerides 93 mg/dL (< 150)
[2018-12-09 06:27] LABS: HDL Cholesterol 50 mg/dL (40-59); LDL Cholesterol 66 mg/dL (< 100)
[2018-12-09 06:28] LABS: BUN/Creatinine Ratio 14.1; Calcium 8.4 mg/dL (8.5-10.1); Potassium 3.8 mmol/L (3.5-5.1)
--- NOTE | 2018-12-09 07:45 | NUR ---
Opening Shift Note Assumed care of patient from NOC RNDonna. Patient awake and alert with no S/S of distress/SOB. States that he still has continuous dull chest pressure. Informed that he needs to notify RN immediately if any new changes occur, patient verbalized understanding. Instructed on POC and to call for assist PRN. Bed in lowest, locked position with side rails up x2 and call light within reach. Will continue to monitor for changes Q1hr and PRN.
[2018-12-09 09:00] VITALS: BP 131/76
[2018-12-09] MEDS: buPROPion HCL 100 MG TAB PO SCH ×2 (09:56→22:27)
[2018-12-09] MEDS: CLOPIDOGREL BISULFATE 75 MG TAB PO SCH (09:57)
[2018-12-09] MEDS: FAMOTIDINE 20 MG TAB PO SCH (09:57)
[2018-12-09] MEDS: ASPirin-EC 81 mg tab PO SCH (09:57)
[2018-12-09] MEDS: CARVEDILOL 3.125 MG TAB PO SCH ×2 (09:57→22:00)
[2018-12-09] MEDS: NITROGLYCERIN 0.4MG/HR TOPICAL PATCH TD SCH (09:58)
--- NOTE | 2018-12-09 12:08 | NUR ---
LOW GLUCOSE Current blood glucose, 69, patient asymptomatic. Patient given some orange juice, will reassess.
[2018-12-09 13:00] VITALS: BP 148/80
--- NOTE | 2018-12-09 13:10 | NUR ---
BLOOD GLUCOSE Reassessed blood glucose, 126. Will continue to monitor.
[2018-12-09 17:00] VITALS: BP 147/73
--- NOTE | 2018-12-09 19:12 | NUR ---
CLOSING NOTE Endorsed care of patient to NOC Donna CHOWDHURY.
[2018-12-09 22:00] VITALS: BP 134/79
[2018-12-09] MEDS: ATORVASTATIN 20 MG TAB PO SCH (22:26)
[2018-12-09] MEDS: LORazepam 0.5 MG TAB PO PRN (22:28)
[2018-12-10] MEDS: hydrALAZINE HCL 20 MG/ML VL IV PRN ×2 (04:53→22:29)
[2018-12-10] MEDS: MORPHINE SULF INJ 2 MG/ML SYRINGE 1ML IV PRN ×3 (04:53→20:18)
[2018-12-10 05:00] VITALS: BP 150/70
[2018-12-10] MEDS: InsuLIN REG 1unit/0.01ml Soln (100units/ml) SC SCH ×4 (06:21→22:00)
[2018-12-10] MEDS: GABAPENTIN 300 MG CAP PO SCH ×3 (06:21→22:29)
[2018-12-10] MEDS: ACCU-CHEK COMFORT CURVE STRIP VI SCH ×4 (06:21→22:37)
--- NOTE | 2018-12-10 07:30 | NUR ---
Opening Shift Note Assumed care of patient, awake and alert. No S/S of distress/SOB or pain. Instructed on POC and to call for assist PRN, will continue to monitor for changes Q1hr and PRN.
--- NOTE | 2018-12-10 08:30 | NUR ---
Dr. Gonzalo Pillai in to see patient as hospitalist.
[2018-12-10 09:00] VITALS: BP 128/76
[2018-12-10] MEDS: NITROGLYCERIN 0.4MG/HR TOPICAL PATCH TD SCH (10:08)
[2018-12-10] MEDS: CLOPIDOGREL BISULFATE 75 MG TAB PO SCH (10:10)
[2018-12-10] MEDS: buPROPion HCL 100 MG TAB PO SCH ×2 (10:10→22:31)
[2018-12-10] MEDS: FAMOTIDINE 20 MG TAB PO SCH (10:10)
[2018-12-10] MEDS: CARVEDILOL 3.125 MG TAB PO SCH ×2 (10:11→22:00)
[2018-12-10] MEDS: ASPirin-EC 81 mg tab PO SCH (10:11)
[2018-12-10] MEDS: HYDROcodone-ACET 5/325MG TAB PO PRN (11:59)
[2018-12-10 13:00] VITALS: BP 147/92
[2018-12-10] MEDS: LORazepam 0.5 MG TAB PO PRN ×2 (13:24→22:29)
[2018-12-10] MEDS ORDERED: SODIUM CHLORIDE 0.9% 1,000 ML IV SCH (13:45)
[2018-12-10] MEDS: SODIUM CHLORIDE 0.9% 1,000 ML IV SCH (13:45)
[2018-12-10 17:00] VITALS: BP 137/74
--- NOTE | 2018-12-10 19:30 | NUR ---
Opening Shift Note Report received from day shift RN. Assumed care of patient. Patient awake and alert x4. No S/S of distress/SOB noted. Patient complained of pain to his chest and arms. Will medicate patient as ordered. Bed locked, left in lowest position, side rails up x2, and call light left within reach. Instructed on POC and to call for assist PRN, will continue to monitor for changes Q1hr and PRN.
[2018-12-10 22:00] VITALS: BP 161/84
[2018-12-10] MEDS: ATORVASTATIN 20 MG TAB PO SCH (22:31)
[2018-12-11] MEDS: MORPHINE SULF INJ 2 MG/ML SYRINGE 1ML IV PRN ×4 (01:55→22:39)
[2018-12-11 05:00] VITALS: BP 149/64
[2018-12-11] MEDS: GABAPENTIN 300 MG CAP PO SCH ×3 (05:56→22:39)
[2018-12-11] MEDS: InsuLIN REG 1unit/0.01ml Soln (100units/ml) SC SCH ×4 (07:00→22:00)
[2018-12-11] MEDS: ACCU-CHEK COMFORT CURVE STRIP VI SCH ×4 (07:18→22:45)
[2018-12-11 08:00] VITALS: BP 145/79
[2018-12-11] MEDS ORDERED: LIDOCAINE 2%HCL (LOCAL ANESTH.) INJ 20ML MDV ONE (09:47)
[2018-12-11] MEDS ORDERED: IODIXANOL 320MG/ML 100ML BTL IV ONE ×2 (09:47→12:18)
[2018-12-11] MEDS: FAMOTIDINE 20 MG TAB PO SCH (10:00)
[2018-12-11] MEDS: NITROGLYCERIN 0.4MG/HR TOPICAL PATCH TD SCH (10:00)
[2018-12-11] MEDS: CLOPIDOGREL BISULFATE 75 MG TAB PO SCH (10:00)
[2018-12-11] MEDS: buPROPion HCL 100 MG TAB PO SCH ×2 (10:00→22:39)
[2018-12-11] MEDS: CARVEDILOL 3.125 MG TAB PO SCH ×2 (10:00→22:40)
[2018-12-11] MEDS: ASPirin-EC 81 mg tab PO SCH (10:00)
[2018-12-11] MEDS: SODIUM CHLORIDE 0.9% 1,000 ML IV SCH (10:12)
[2018-12-11] MEDS ORDERED: ANGIOMAX 250 MG VIAL IV ONE ×2 (10:13→11:59)
[2018-12-11] MEDS ORDERED: fentaNYL CITRATE 100 MCG/2 ML VL ONE (10:14)
[2018-12-11] MEDS ORDERED: SODIUM CHL 0.9% 50 ML ONE ×2 (10:14→11:59)
[2018-12-11] MEDS ORDERED: MIDAZOLAM HCL 1MG/1ML-2 ML VIAL ONE ×2 (10:14→11:34)
[2018-12-11] MEDS ORDERED: diphenhdrAMINE HCL 50 MG/1 ML VL ONE (10:22)
[2018-12-11] MEDS ORDERED: IOHEXOL 350 MG/ML 100ML IJ ONE (10:50)
--- NOTE | 2018-12-11 12:11 | NUR ---
Estimated needs based on CBW 54.6 kg 3962-3124 kcal (25-27 kcal-DM ulceration/wound healing support) 55-66 g (1.0-1.2 g/kg) Addendum: 12/11/18 at [address] Amended: Links added.
[2018-12-11] MEDS ORDERED: ASPirin 81 mg TAB ONE ×2 (12:38→12:46)
[2018-12-11] MEDS ORDERED: CLOPIDOGREL BISULFATE 75 MG TAB ONE ×2 (12:38→12:46)
[2018-12-11] MEDS: hydrALAZINE HCL 20 MG/ML VL IV PRN (13:37)
[2018-12-11 14:13] LABS: Basophils # (auto) 0.1 uL; Basophils % (auto) 1.8 % (0.0-2.0); Eosinophils # (auto) 0.2 uL; Eosinophils % (auto) 4.2 % (0.0-7.0); Hematocrit 44.2 % (41.0-53.0); Hemoglobin 14.9 g/dL (13.5-17.5); Lymphocytes # (auto) 1.6 uL; Lymphocytes % (auto) 28.4 % (10.0-50.0); Mean Corpuscular Hemoglobin 30.1 pg (28.0-32.0); Mean Corpuscular Hgb Conc. 33.7 g/dL (32.0-36.0); Mean Corpuscular Volume 89.3 fL (80.0-100.0); Monocytes # (auto) 0.5 uL; Monocytes % (auto) 9.8 % (0.0-12.0); Neutrophils # (auto) 3.1 uL; Neutrophils % (auto) 55.8 % (37.0-80.0); Nucleated Red Blood Cells % 0.1 %; Platelet Count (auto) 175 10^3/uL (140-450); Red Blood Cells 4.95 10^6/uL (4.5-5.90); Red Cell Distribution Width 16.3 % (11.8-14.3); White Blood Cell 5.5 10^3/uL (4.4-10.8)
--- NOTE | 2018-12-11 14:17 | NUR ---
RETURNED TO ROOM VERY GROGGY BUT AROUSABLE. DENIES ANY PAIN AT THIS TIME. DRESSING TO RIGHT GROIN SOFT CLEAN DRY AND INTACT.
[2018-12-11 14:36] LABS: BUN/Creatinine Ratio 11.9; Calcium 8.4 mg/dL (8.5-10.1); Potassium 4.2 mmol/L (3.5-5.1)
[2018-12-11 15:59] LABS: INR 3.25 (0.9-1.15)
[2018-12-11 17:00] VITALS: BP 109/57
--- NOTE | 2018-12-11 17:10 | NUR ---
WOUND CARE NOTE: Wound care in to see patient per wound care request regarding " wound to left toe". Bedside nurse took photograph of patient's wound upon for reference. Patient is 58 years old male with admitting diagnosis of ACS. Patient is resting in bed in Rm. 214B, awake, alert and fully oriented. He's s/p left heart cath. He denies any pain at this time. He's self turn and reposition and his Poncho score is 19. Noted patient's Lt medial plantar great toe has 1.5x1.2cm eschar wound. 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 Patient's L dorsal foot noted with dark hyperpigmented skin, wound to L great toe is covered with black, dry necrotic tissue, left open to air. Patient's education given regarding Diabetic Foot Care, advised to see strength and conditioning coach as out patient, verbalized understanding. No other wound noted. NO further wound care monitoring needed at this time. Addendum: 12/11/18 at 1845 by Charo Cardenas RN Amended: Links added.
--- NOTE | 2018-12-11 19:15 | NUR ---
Opening Shift Note Report received from day shift RN. Assumed care of patient. Patient awake sitting in bed and alert x4. No S/S of distress/SOB noted. Patient complained of generalized pain. Will medicate patient as ordered. Dressing to right groin clean, dry and intact. No hematoma formation noted. Bed locked, left in lowest position, side rails up x2, and call light left within reach. Instructed on POC and to call for assist PRN, will continue to monitor for changes Q1hr and PRN.
[2018-12-11 21:39] VITALS: BP 127/69
[2018-12-11] MEDS: ATORVASTATIN 20 MG TAB PO SCH (22:40)
[2018-12-12] MEDS: MORPHINE SULF INJ 2 MG/ML SYRINGE 1ML IV PRN (03:31)
[2018-12-12 05:00] VITALS: BP 129/67
[2018-12-12] MEDS: GABAPENTIN 300 MG CAP PO SCH (06:04)
[2018-12-12] MEDS: SODIUM CHLORIDE 0.9% 1,000 ML IV SCH (06:05)
[2018-12-12] MEDS: ACCU-CHEK COMFORT CURVE STRIP VI SCH ×2 (06:32→11:48)
[2018-12-12] MEDS: InsuLIN REG 1unit/0.01ml Soln (100units/ml) SC SCH ×2 (06:32→11:30)
[2018-12-12 08:00] VITALS: BP 131/87
--- NOTE | 2018-12-12 08:15 | NUR ---
Dr. Pillai at bed side to see pt, doctor discussed the plan of care with pt, doctor informed regarding pt's lt great toe wound, as per doctor pt can follow up with a freezing machine operator as out pt, pt will be given Dr. Sargent's/podiatry information.
[2018-12-12] MEDS: FAMOTIDINE 20 MG TAB PO SCH (09:59)
[2018-12-12] MEDS: ASPirin-EC 81 mg tab PO SCH (09:59)
[2018-12-12] MEDS: CARVEDILOL 3.125 MG TAB PO SCH (09:59)
[2018-12-12] MEDS: CLOPIDOGREL BISULFATE 75 MG TAB PO SCH (10:00)
[2018-12-12] MEDS: buPROPion HCL 100 MG TAB PO SCH (10:00)
[2018-12-12] MEDS: NITROGLYCERIN 0.4MG/HR TOPICAL PATCH TD SCH (10:01)
[2018-12-12 11:21] VITALS: BP 131/87
[2018-12-12] MEDS: hydrALAZINE HCL 20 MG/ML VL IV PRN (11:49)
[2018-12-12] MEDS: HYDROcodone-ACET 5/325MG TAB PO PRN (11:49)
[2018-12-12 12:00] VITALS: BP 135/88
[2018-12-12 13:25] VITALS: BP 149/94
--- NOTE | 2018-12-12 13:25 | NUR ---
Discharge instructions given as ordered. Encourage to follow up with PMD and podiatry as instructed. All questions and concerns addressed. Patient verbalized understanding. Medication reconciliation form completed and copy given to patient. No home medications held in Pharmacy, and no needed vaccines to be given. IV removed with catheter intact, pressure dressing applied. Telemetry unit returned to [facility].
--- NOTE | 2018-12-12 13:30 | NUR ---
Pt requested a bus pass, bus pass given.
--- NOTE | 2018-12-12 13:40 | NUR ---
Patient walked out of the hospital with all personal belongings. No distress noted at time of departure.
== END 2018-12-12 13:40 | disposition home or self-care (01) | DRG 246 ==
LOC: ER 12:33 → TELE 12:34 → TELE-CENTR 18:24
PROVIDERS: ADMIT Nurse Practitioner Acute Care; ATTEND Family Medicine
PROC: 4A023N7 Measurement of Cardiac Sampling and Pressure, Left Heart, Percutaneous Approach (ICD-10-PCS; principal; 2018-12-11)
PROC: 027136Z Dilation of Coronary Artery, Two Arteries with Three Drug-eluting Intraluminal Devices, Percutaneous Approach (ICD-10-PCS; 2018-12-11)
PROC: B2111ZZ Fluoroscopy of Multiple Coronary Arteries using Low Osmolar Contrast (ICD-10-PCS; 2018-12-11)
PROC: B2131ZZ Fluoroscopy of Multiple Coronary Artery Bypass Grafts using Low Osmolar Contrast (ICD-10-PCS; 2018-12-11)
PROC: B2181ZZ Fluoroscopy of Left Internal Mammary Bypass Graft using Low Osmolar Contrast (ICD-10-PCS; 2018-12-11)
PROC: B2151ZZ Fluoroscopy of Left Heart using Low Osmolar Contrast (ICD-10-PCS; 2018-12-11)
DX: T82.855A Stenosis of coronary artery stent, initial encounter (principal); I50.43 Acute on chronic combined systolic (congestive) and diastolic (congestive) heart failure; I25.110 Atherosclerotic heart disease of native coronary artery with unstable angina pectoris; I13.0 Hypertensive heart and chronic kidney disease with heart failure and stage 1 through stage 4 chronic kidney disease, or unspecified chronic kidney disease; J44.9 Chronic obstructive pulmonary disease, unspecified; N18.3 Chronic kidney disease, stage 3 (moderate); E11.22 Type 2 diabetes mellitus with diabetic chronic kidney disease; E78.5 Hyperlipidemia, unspecified; E11.40 Type 2 diabetes mellitus with diabetic neuropathy, unspecified; E11.51 Type 2 diabetes mellitus with diabetic peripheral angiopathy without gangrene; E78.00 Pure hypercholesterolemia, unspecified; F17.210 Nicotine dependence, cigarettes, uncomplicated; F32.9 Major depressive disorder, single episode, unspecified; F41.9 Anxiety disorder, unspecified; I25.5 Ischemic cardiomyopathy; I25.82 Chronic total occlusion of coronary artery; I70.0 Atherosclerosis of aorta; K21.9 Gastro-esophageal reflux disease without esophagitis; Y84.0 Cardiac catheterization as the cause of abnormal reaction of the patient, or of later complication, without mention of misadventure at the time of the procedure; Z79.4 Long term (current) use of insulin; Z95.1 Presence of aortocoronary bypass graft; Z79.899 Other long term (current) drug therapy; Z82.0 Family history of epilepsy and other diseases of the nervous system; Z82.3 Family history of stroke; I25.2 Old myocardial infarction; Z82.49 Family history of ischemic heart disease and other diseases of the circulatory system; Z83.3 Family history of diabetes mellitus; Z90.49 Acquired absence of other specified parts of digestive tract; Z91.19 Patient's noncompliance with other medical treatment and regimen; Z95.810 Presence of automatic (implantable) cardiac defibrillator; Z98.61 Coronary angioplasty status; Y92.89 Other specified places as the place of occurrence of the external cause; Z71.6 Tobacco abuse counseling
CPT/HCPCS: 36415; 71045; 80048; 80053; 80061; 82565; 82962; 83036; 83735; 83880; 84484; 85025; 85610; 85730; 86141; 86850; 86900; 86901; 92928; 93005; 93306; 93459; 94761; 99152; 99153; C1887; G0378; J1815; J2250; Q9967

== ENCOUNTER 2019-02-10 20:58 | Inpatient (IN) | payer OTHER, MEDICAID ==
[~2019-02-10] VITALS: Ht 167.6 cm; Wt 61.7 kg
[2019-02-10 21:49] LABS: Basophils # (auto) 0.1 uL; Basophils % (auto) 2.5 % (0.0-2.0); Eosinophils # (auto) 0.3 uL; Eosinophils % (auto) 4.6 % (0.0-7.0); Hemoglobin 14.8 g/dL (13.5-17.5); Lymphocytes # (auto) 1.9 uL; Lymphocytes % (auto) 34.1 % (10.0-50.0); Mean Corpuscular Hemoglobin 31.4 pg (28.0-32.0); Mean Corpuscular Hgb Conc. 33.5 g/dL (32.0-36.0); Mean Corpuscular Volume 93.5 fL (80.0-100.0); Monocytes # (auto) 0.4 uL; Monocytes % (auto) 8.1 % (0.0-12.0); Neutrophils # (auto) 2.8 uL; Neutrophils % (auto) 50.7 % (37.0-80.0); Nucleated Red Blood Cells % 0.2 %; Platelet Count (auto) 160 10^3/uL (140-450); Red Blood Cells 4.71 10^6/uL (4.5-5.90); Red Cell Distribution Width 16.2 % (11.8-14.3); White Blood Cell 5.5 10^3/uL (4.4-10.8)
[2019-02-10 22:05] LABS: Anion Gap 14 (5-15); Blood Urea Nitrogen 25 mg/dL (7-18); Calcium 7.8 mg/dL (8.5-10.1); Carbon Dioxide 14 mmol/L (21-32); Chloride 117 mmol/L (98-107); Glucose 139 mg/dL (74-106); Potassium 3.7 mmol/L (3.5-5.1); Sodium 145 mmol/L (136-145)
[2019-02-10 22:07] LABS: Alanine Aminotransferase 21 U/L (16-61); Aspartate Aminotransferase 31 U/L (15-37); BUN/Creatinine Ratio 12.2; GFR African American 43 mL/min; GFR Non-African American 36 mL/min
[2019-02-10 22:11] LABS: Alkaline Phosphatase 143 U/L (45-117); Bilirubin, Total 0.2 mg/dL (0.2-1.0); Total Protein 6.5 g/dL (6.4-8.2)
[2019-02-10 22:19] LABS: INR 0.94 (0.9-1.15); Partial Thromboplastin Time 27.1 sec (23.64-32.05)
[2019-02-11] MEDS ORDERED: cloNIDine HCL 0.1 MG TAB PO ONE (01:45)
[2019-02-11] MEDS ORDERED: MORPHINE SULFATE 4 MG/ML SYR/VIAL IV ONE (03:15)
[2019-02-11] MEDS ORDERED: ONDANSETRON HCL 4 MG/2 ML VIAL IV ONE (03:15)
[2019-02-11] MEDS ORDERED: HYDROmorphone HCL 2 MG/ML VL IV ONE (05:00)
[2019-02-11] MEDS ORDERED: MORPHINE SULF INJ 2 MG/ML SYRINGE 1ML IV PRN (11:30)
[2019-02-11] MEDS ORDERED: NITROGLYCERIN 0.4 MG SL TAB SL PRN (11:30)
[2019-02-11] MEDS ORDERED: DEXTROSE (50%) 50ML SYRG IV PRN (11:30)
[2019-02-11] MEDS: InsuLIN REG 1unit/0.01ml Soln (100units/ml) SC SCH ×3 (11:45→22:13)
[2019-02-11] MEDS: ACCU-CHEK COMFORT CURVE STRIP VI SCH ×3 (11:45→22:12)
[2019-02-11] MEDS: MORPHINE SULF INJ 2 MG/ML SYRINGE 1ML IV PRN ×3 (12:00→22:13)
[2019-02-11] MEDS: ISOSORBIDE DINITRATE 10 MG TAB PO SCH ×2 (14:00→22:12)
[2019-02-11] MEDS: hydrALAZINE HCL 25 MG TAB PO SCH ×2 (14:00→22:11)
--- NOTE | 2019-02-11 14:03 | NUR ---
Pt Arrived on Unit Pt ambulated to bed with no s/s of distress or SOB. Pt is a/ox4 with no complaints. Safety measures maintained with call light within reach, bed in lowest position, and side rails up. Will continue to monitor for changes q1hr and prn.
[2019-02-11] MEDS: GABAPENTIN 300 MG CAP PO SCH ×2 (14:47→22:12)
--- NOTE | 2019-02-11 14:51 | NUR ---
Wound Photos Taken for Reference Pt arrived on unit with wound to Greater L toe. Currently open to air, no drainage noted.
[2019-02-11 15:35] VITALS: BP 120/54
[2019-02-11 17:00] VITALS: BP 105/69
[2019-02-11] MEDS: LORazepam 0.5 MG TAB PO PRN (20:05)
[2019-02-11] MEDS ORDERED: ARIPIPRAZOLE 2 MG PO SCH (22:00)
[2019-02-11] MEDS: CARVEDILOL 3.125 MG TAB PO SCH (22:00)
[2019-02-11] MEDS: ABILIFY 2 MG PO SCH (22:00)
[2019-02-11] MEDS: buPROPion HCL 100 MG TAB PO SCH (22:12)
[2019-02-11 22:26] VITALS: BP 144/90
[2019-02-12 05:18] VITALS: BP 129/69
[2019-02-12] MEDS: GABAPENTIN 300 MG CAP PO SCH (06:28)
[2019-02-12] MEDS: InsuLIN REG 1unit/0.01ml Soln (100units/ml) SC SCH ×4 (06:29→22:00)
[2019-02-12] MEDS: ISOSORBIDE DINITRATE 10 MG TAB PO SCH ×3 (06:29→22:18)
[2019-02-12] MEDS: ACCU-CHEK COMFORT CURVE STRIP VI SCH ×4 (06:29→22:21)
[2019-02-12] MEDS: hydrALAZINE HCL 25 MG TAB PO SCH ×3 (06:29→22:17)
[2019-02-12] MEDS: MORPHINE SULF INJ 2 MG/ML SYRINGE 1ML IV PRN ×3 (06:34→20:07)
[2019-02-12 07:13] LABS: Basophils # (auto) 0.1 uL; Basophils % (auto) 1.1 % (0.0-2.0); Eosinophils # (auto) 0.3 uL; Hematocrit 40.9 % (41.0-53.0); Hemoglobin 13.6 g/dL (13.5-17.5); Lymphocytes # (auto) 1.7 uL; Lymphocytes % (auto) 25.8 % (10.0-50.0); Mean Corpuscular Hemoglobin 30.9 pg (28.0-32.0); Mean Corpuscular Hgb Conc. 33.2 g/dL (32.0-36.0); Monocytes # (auto) 0.5 uL; Monocytes % (auto) 7.3 % (0.0-12.0); Neutrophils % (auto) 60.8 % (37.0-80.0); Nucleated Red Blood Cells % 0.1 %; Platelet Count (auto) 179 10^3/uL (140-450); White Blood Cell 6.6 10^3/uL (4.4-10.8)
[2019-02-12 07:29] LABS: BUN/Creatinine Ratio 16.2; Calcium 7.9 mg/dL (8.5-10.1)
--- NOTE | 2019-02-12 08:05 | NUR ---
OPENING SHIFT NOTE: PATIENT RESTING IN BED. PERSONAL CANE AT BEDSIDE. EVEN AND UNLABORED RESPIRATIONS NOTED NO SIGNS OF DISTRESS. CALL LIGHT WITHIN REACH, BED IN LOWEST LOCKED POSITION. WILL CONTINUE TO MONITOR.
[2019-02-12 09:00] VITALS: BP 122/62
[2019-02-12] MEDS: CLOPIDOGREL BISULFATE 75 MG TAB PO SCH (10:18)
[2019-02-12] MEDS: ASPirin-EC 81 mg tab PO SCH (10:18)
[2019-02-12] MEDS: PANTOPRAZOLE 40 MG TAB PO SCH (10:19)
[2019-02-12] MEDS: SERTRALINE HCL 50 MG TAB PO SCH (10:19)
[2019-02-12] MEDS: CARVEDILOL 3.125 MG TAB PO SCH ×2 (10:21→22:18)
[2019-02-12] MEDS: buPROPion HCL 100 MG TAB PO SCH ×2 (10:21→22:21)
--- NOTE | 2019-02-12 10:36 | NUR ---
PATIENT AMBULATING THE UNIT INSTRUCTED BY MD. Annelise SORENSEN. NO SIGNS OF DISTRESS NOTED.
--- NOTE | 2019-02-12 11:30 | NUR ---
WOUND CARE NOTE: IN TO SEE PATIENT AT THIS TIME PER WOUND CARE CONSULT REQUEST. PATIENT ADMITTED TO [facility] WITH DIAGNOSIS OF CHEST PAIN. PATIENT NOTED TO HAVE WOUND UPON ADMIT. WOUND PHOTO TAKEN AT THAT TIME FOR REFERENCE BY BEDSIDE NURSE. CURRENT JOSE MIGUEL SCORE IS 19. PATIENT IS AMBULATORY. PATIENT HAS DM TYPE 2, WITH 2 YEAR HISTORY OF LEFT PLANTAR # 1 TOE DFU. HE HAS HISTORY WITH RIGHT # 1 TOE AMPUTATION, WELL HEALED STUMP NOTED. PATIENT'S DFU ULCER CULTURED AT THIS TIME, USING KAUFMAN TECHNIQUE, SENT OFF TO LAB FOR PROCESSING. WOUND BED IS PALE RED, WITH CALLOUS RING SURROUNDING WOUND BED. PATIENT EDUCATED IN WOUND CARE AND THE NEED TO FOLLOW UP WITH A MAIL DISTRIBUTION SCHEME EXAMINER THROUGH HIS IE POST DISCHARGE. PATIENT VERBALIZED UNDERSTANDING, AND STATED THAT HE WOULD DO THAT. CLEANSED WOUND WITH WOUND CLEANSER, PATTED DRY WITH STERILE GAUZE. APPLIED THERAHONEY GEL WITHIN WOUND BED. COVERED WITH OPTIFOAM GENTLE DRESSING, SECURED WITH STOCKINETTE. ELEVATED LEFT FOOT UP ONTO PILLOWS FOR EDEMA CONTROL . RECOMMEND: EOD/PRN DRESSING CHANGE TO LEFT # 1 TOE WOUND, ELEVATION OF LEFT FOOT WHILE IN BED, DIETARY CONSULT FOR DFU ULCER, CONTINUED MONITORING BY WOUND CARE TEAM. Addendum: 02/12/19 at 1828 by Isabel Cole RN Amended: Links added.
--- NOTE | 2019-02-12 11:37 | NUR ---
WOUND CARE NURSE TY AT BEDSIDE- CULTURE COLLECTED AND TO BE SENT BY TY CHOWDHURY.
[2019-02-12 13:00] VITALS: BP 125/60
[2019-02-12] MEDS: LORazepam 0.5 MG TAB PO PRN (16:38)
[2019-02-12 17:18] VITALS: BP 161/97
[2019-02-12 17:56] VITALS: BP 133/68
--- NOTE | 2019-02-12 17:56 | NUR ---
1700 VS TAKEN BY SAVANAH ABREU, BP 161/97 MMHG. THIS RN RE-ASSESSED PATIENT AFTER RESTING IN BED, BP 133/68 HR 64.
--- NOTE | 2019-02-12 18:38 | NUR ---
CLOSING SHIFT NOTE: PATIENT RESTING IN BED, EDUCATED USE OF CALL LIGHT FOR HELP. PATIENT VERBALIZED UNDERSTANDING. BED IN LOWEST LOCKED POSITION. RESPIRATIONS EVEN AND UNLABORED. WILL ENDORSE CARE TO NOC RN.
--- NOTE | 2019-02-12 19:10 | NUR ---
CARE ENDORSED TO ISHA CHOWDHURY.
[2019-02-12] MEDS: ABILIFY 2 MG PO SCH (22:00)
[2019-02-12 22:05] VITALS: BP 159/70
[2019-02-13] MEDS: MORPHINE SULF INJ 2 MG/ML SYRINGE 1ML IV PRN ×5 (00:07→17:02)
[2019-02-13 05:33] VITALS: BP 159/84
[2019-02-13 06:08] LABS: Calcium 8.1 mg/dL (8.5-10.1); Potassium 3.8 mmol/L (3.5-5.1)
[2019-02-13] MEDS: hydrALAZINE HCL 25 MG TAB PO SCH ×2 (06:44→14:00)
[2019-02-13] MEDS: ISOSORBIDE DINITRATE 10 MG TAB PO SCH ×2 (06:45→14:01)
[2019-02-13] MEDS: ACCU-CHEK COMFORT CURVE STRIP VI SCH ×3 (06:45→16:33)
[2019-02-13] MEDS: InsuLIN REG 1unit/0.01ml Soln (100units/ml) SC SCH ×3 (06:45→16:41)
--- NOTE | 2019-02-13 07:37 | NUR ---
Opening Note Assumed pt care from [facility] nurse. Pt is a/ox4 with no s/s of distress or SOB. Pt is currently laying in bed with a mild complaint of PASTOR. Discussed POC with pt; pt verbalized understanding. Safety measures maintained with call light within reach, bed in lowest position and side rails up. Will continue to monitor for changes q1hr and prn.
[2019-02-13 09:00] VITALS: BP 128/72
[2019-02-13] MEDS: CLOPIDOGREL BISULFATE 75 MG TAB PO SCH (09:16)
[2019-02-13] MEDS: SERTRALINE HCL 50 MG TAB PO SCH (09:16)
[2019-02-13] MEDS: ASPirin-EC 81 mg tab PO SCH (09:16)
[2019-02-13] MEDS: CARVEDILOL 3.125 MG TAB PO SCH (09:17)
[2019-02-13] MEDS: buPROPion HCL 100 MG TAB PO SCH (09:17)
[2019-02-13] MEDS: PANTOPRAZOLE 40 MG TAB PO SCH (09:17)
--- NOTE | 2019-02-13 09:47 | NUR ---
Dr Bhargav Fuentes MD will see pt today to assess nephrology needs.
[2019-02-13] MEDS ORDERED: GABAPENTIN 300 MG CAP PO SCH ×2 (10:00→22:00)
--- NOTE | 2019-02-13 12:20 | NUR ---
Dr Haley at Bedside stated pt is okay to D/C once nephrology clears pt. Instructed pt to f/u with Mana Kim as well as Stephania Kim pending nephrologists' assessment. Will follow through with orders.
[2019-02-13 12:30] VITALS: BP 144/70
[2019-02-13 13:45] VITALS: BP 144/70
--- NOTE | 2019-02-13 16:50 | NUR ---
Ilene Kim for Nephro Clearance Left message via messaging service. Awaiting call back.
--- NOTE | 2019-02-13 17:03 | NUR ---
D/C Photo's Taken for reference Wound photo's taken of pt's L toe for reference. Dressing reinforced. Minimal drainage present on dressing.
[2019-02-13 17:24] VITALS: BP 135/79
--- NOTE | 2019-02-13 18:00 | NUR ---
Ilene Kim stated it was okay to D/C kurtis. Will follow through with orders.
--- NOTE | 2019-02-13 18:14 | NUR ---
IV D/C'ED IV TO PT'S R FA REMOVED FULLY INTACT. SITE IS ASYMPTOMATIC. PRESSURE APPLIED TO SITE FOR 3 MINUTES WITH GAUZE AND THEN WRAPPED IN COBAN. PT INSTRUCTED TO KEEP DRESSING ON FOR 30 MINUTES; PT VERBALIZED UNDERSTANDING.
--- NOTE | 2019-02-13 18:15 | NUR ---
TELEBOX BOX REMOVED AND SENT BACK TO ICU OFFICE.
--- NOTE | 2019-02-13 18:18 | NUR ---
[facility] CALLED STATED THEY WOULD BE ABLE TO ACUTE CARE PHYSICAL THERAPIST PT IN 30 MINUTES; NOTIFIED PT.
--- NOTE | 2019-02-13 19:15 | NUR ---
Pt D/C'ed Pt left unit via wheel chair will all belongings, education material, and follow up appointments. All questions were answered. Pt's IV and telebox removed. Pt left via taxi service.
== END 2019-02-13 19:13 | disposition home or self-care (01) | DRG 291 ==
LOC: EDBD 20:58 → ER 20:58 → TELE 20:59 → TELE-WESTW 02-11 14:08
PROVIDERS: ADMIT Nurse Practitioner Acute Care; ATTEND Internal Medicine
DX: I13.0 Hypertensive heart and chronic kidney disease with heart failure and stage 1 through stage 4 chronic kidney disease, or unspecified chronic kidney disease (principal); N17.0 Acute kidney failure with tubular necrosis; I50.23 Acute on chronic systolic (congestive) heart failure; I16.9 Hypertensive crisis, unspecified; E44.0 Moderate protein-calorie malnutrition; N18.3 Chronic kidney disease, stage 3 (moderate); E11.22 Type 2 diabetes mellitus with diabetic chronic kidney disease; E11.51 Type 2 diabetes mellitus with diabetic peripheral angiopathy without gangrene; F41.9 Anxiety disorder, unspecified; K21.9 Gastro-esophageal reflux disease without esophagitis; I25.10 Atherosclerotic heart disease of native coronary artery without angina pectoris; E11.21 Type 2 diabetes mellitus with diabetic nephropathy; F32.9 Major depressive disorder, single episode, unspecified; E11.40 Type 2 diabetes mellitus with diabetic neuropathy, unspecified; E78.5 Hyperlipidemia, unspecified; J44.9 Chronic obstructive pulmonary disease, unspecified; F17.210 Nicotine dependence, cigarettes, uncomplicated; Z68.22 Body mass index [BMI] 22.0-22.9, adult; Z79.4 Long term (current) use of insulin; Z79.899 Other long term (current) drug therapy; Z82.0 Family history of epilepsy and other diseases of the nervous system; Z82.3 Family history of stroke; Z82.49 Family history of ischemic heart disease and other diseases of the circulatory system; Z91.19 Patient's noncompliance with other medical treatment and regimen; Z95.5 Presence of coronary angioplasty implant and graft; Z95.1 Presence of aortocoronary bypass graft; Z83.3 Family history of diabetes mellitus; Z90.49 Acquired absence of other specified parts of digestive tract
CPT/HCPCS: 36415; 70450; 71045; 80048; 80053; 80320; 82962; 83880; 84484; 85025; 85379; 85610; 85730; 87077; 87186; 87205; 93005; 96374; 96375; G0378; J1815; J2405

== ENCOUNTER 2019-04-10 12:05 | Emergency (ER) | payer OTHER, MEDICAID ==
[~2019-04-10] VITALS: Ht 167.6 cm; Wt 58.1 kg
[~2019-04-10 12:05] MED LIST changes: -TRAZ100T2 PO; +TRAZ100T3 PO
[2019-04-10 12:32] VITALS: BP 163/72
[2019-04-10 14:10] LABS: Basophils # (auto) 0.1 uL; Basophils % (auto) 1.1 % (0.0-2.0); Eosinophils # (auto) 0.1 uL; Eosinophils % (auto) 1.8 % (0.0-7.0); Hematocrit 43.8 % (41.0-53.0); Hemoglobin 14.8 g/dL (13.5-17.5); Lymphocytes # (auto) 1.6 uL; Lymphocytes % (auto) 19.1 % (10.0-50.0); Mean Corpuscular Hgb Conc. 33.8 g/dL (32.0-36.0); Mean Corpuscular Volume 91.7 fL (80.0-100.0); Monocytes # (auto) 0.6 uL; Monocytes % (auto) 6.8 % (0.0-12.0); Neutrophils # (auto) 5.8 uL; Neutrophils % (auto) 71.2 % (37.0-80.0); Platelet Count (auto) 164 10^3/uL (140-450); Red Blood Cells 4.77 10^6/uL (4.5-5.90); Red Cell Distribution Width 14.3 % (11.8-14.3); White Blood Cell 8.2 10^3/uL (4.4-10.8)
[2019-04-10 14:26] LABS: Albumin 3.5 g/dL (3.4-5.0); Anion Gap 7 (5-15); Blood Urea Nitrogen 26 mg/dL (7-18); Calcium 8.9 mg/dL (8.5-10.1); Carbon Dioxide 20 mmol/L (21-32); Chloride 113 mmol/L (98-107); Glucose 92 mg/dL (74-106); Potassium 4.3 mmol/L (3.5-5.1); Sodium 140 mmol/L (136-145)
[2019-04-10 14:32] LABS: Alanine Aminotransferase 14 U/L (16-61); Alkaline Phosphatase 154 U/L (45-117); Aspartate Aminotransferase 16 U/L (15-37); BUN/Creatinine Ratio 12.1; Bilirubin, Total 0.7 mg/dL (0.2-1.0); GFR African American 41 mL/min; GFR Non-African American 34 mL/min; Total Protein 7.7 g/dL (6.4-8.2)
== END 2019-04-10 14:43 | disposition home or self-care (01) ==
LOC: ER 12:05
DX: F41.1 Generalized anxiety disorder (principal); I13.0 Hypertensive heart and chronic kidney disease with heart failure and stage 1 through stage 4 chronic kidney disease, or unspecified chronic kidney disease; E11.22 Type 2 diabetes mellitus with diabetic chronic kidney disease; N18.9 Chronic kidney disease, unspecified; I50.9 Heart failure, unspecified; F17.210 Nicotine dependence, cigarettes, uncomplicated; E78.5 Hyperlipidemia, unspecified; I25.2 Old myocardial infarction; Z90.49 Acquired absence of other specified parts of digestive tract; Z90.89 Acquired absence of other organs; Z98.61 Coronary angioplasty status; Z79.4 Long term (current) use of insulin; Z79.899 Other long term (current) drug therapy
CPT/HCPCS: 36415; 80053; 84484; 85025; 93005

== ENCOUNTER 2019-06-10 05:28 | Emergency (ER) | payer MEDICARE, MEDICAID ==
[~2019-06-10] VITALS: Ht 165.1 cm; Wt 68.0 kg
[2019-06-10] MEDS ORDERED: HYDROcodone-ACET 10/325MG TAB PO ONE (06:45)
[2019-06-10] MEDS ORDERED: cloNIDine HCL 0.1 MG TAB PO ONE (07:15)
[2019-06-10 09:58] VITALS: BP 153/73
== END 2019-06-10 14:14 | disposition home or self-care (01) ==
LOC: ER 05:28 → EDBD 05:28 → ER 14:14
DX: R51 Headache (principal); I10 Essential (primary) hypertension; E11.22 Type 2 diabetes mellitus with diabetic chronic kidney disease; I13.0 Hypertensive heart and chronic kidney disease with heart failure and stage 1 through stage 4 chronic kidney disease, or unspecified chronic kidney disease; N18.9 Chronic kidney disease, unspecified; I50.9 Heart failure, unspecified; Z79.4 Long term (current) use of insulin; E78.5 Hyperlipidemia, unspecified; Z90.49 Acquired absence of other specified parts of digestive tract; Z98.61 Coronary angioplasty status; Z79.899 Other long term (current) drug therapy; Z79.2 Long term (current) use of antibiotics; Z79.82 Long term (current) use of aspirin; Z91.040 Latex allergy status
CPT/HCPCS: 70450; 93005